=== PATIENT | female | born 1955 | race Caucasian/White ===

== ENCOUNTER 2018-10-23 17:23 | Emergency (ER) | payer OTHER, MEDICAID, SELFPAY ==
[2018-10-23 17:23] VITALS: BP 115/77; PULSE 107; RESP 22; TEMP 35.9; O2SAT 99; BMI 25.8
--- NOTE | 2018-10-23 18:23 | PC.NURSE ---
Pt reports has restless leg syndrome but not currently taking any medication. Reports involuntary movements now even in her shoulders and upper extremities and lasting more than 1hrs which is not usual. Pt reports when pt feels tired, she has the restless leg symptoms and reports alot going on. Denies recent illness, nausea/vomiting/diarrhea, feeling dehydrated or working outdoors.
--- NOTE | 2018-10-23 18:30 | ED.NEUROSD ---
HPI - Neuro Symptoms/Deficit <Harini Pruett PA-C - Last Filed: 10/23/18 22:16> General Chief Complaint: Neuro Symptoms/Deficit Stated Complaint: Restless Leg issues Time Seen by Provider: 10/23/18 18:27 Source: patient Mode of arrival: ambulatory Limitations: no limitations History of Present Illness HPI Narrative: This 63-year-old female comes in today with complaints of worsening restless legs symptoms. She states that she has had intermittent RLS symptoms for perhaps 10 years. She states typically symptoms last up to half an hour and then resolved. She is able to fall asleep. They can occur during the day as well but usually not frequent enough that she would take medication for them. She states that she has been noticing symptoms more frequently recently, and today she was out eating couple of hours ago when she began to have symptoms that have persisted. She states that this is most prominent in her legs but also feels like she needs to move her arms and shoulders. She describes this as a sensation that ?I have to move?. She is not in any pain. She states that she had the flu about a month ago and was hospitalized but has been well since then without any recent illness. No new rash or fevers. She does state that she has not been sleeping as well recently and also has had increased stress with her hospitalized and in a skilled facility, just got discharged. She states the only new medication she is on is lisinopril, changed from losartan 5 or 6 weeks ago, otherwise no recent changes. She states she has been on the same dose of thyroid medication for a long time and numbers were stable at last check, she thinks about 6 months ago. She states that she may have history of mild tremor in the past On Anticoagulants: No Related Data Previous Rx's Medication Instructions Recorded diazepam 2.5 mg PO BID PRN #3 tab 10/23/18 Allergies Allergy/AdvReac Type Severity Reaction Status Date / Time No Known Drug Allergies Allergy Verified 10/23/18 17:25 Review of Systems <Harini Pruett PA-C - Last Filed: 10/23/18 22:16> Review of Systems ROS Unobtainable: All systems reviewed & are unremarkable except as noted in HPI and below PFSH <Harini Pruett PA-C - Last Filed: 10/23/18 22:16> Medical History (Updated 10/23/18 @ 22:13 by Harini Pruett PA-C) Chronic GERD (Chronic) Degenerative disc disease (Chronic) HTN (hypertension) (Chronic) Hypothyroidism (Chronic) Non-insulin dependent type 2 diabetes mellitus (Chronic) Pancytopenia (Chronic) Restless leg syndrome (Chronic) Surgical History (Updated 10/23/18 @ 19:07 by Harini Pruett PA-C) History of lumbosacral spine surgery (Resolved) Social History (Updated 10/23/18 @ 19:08 by Harini Pruett PA-C) Smoking Status: Current some day smoker Social History (Updated 10/23/18 @ 19:08 by Harini Pruett PA-C) Smoking Status: Current some day smoker Comment: Denies ETOH, rare THC, no street drugs Exam <Harini Pruett PA-C - Last Filed: 10/23/18 22:16> Narrative Exam Narrative: GENERAL APPEARANCE: Patient is sleeping comfortably, in no distress. HEENT: PERRL, EOMI, normal oropharynx, no sinus TTP NECK: Supple, no thyromegaly or masses LUNGS: Clear to auscultation bilaterally. HEART: Rate and rhythm regular without murmur, normal S1 and S2, no S3 or S4. ABDOMEN: Soft, NT, ND, + BS x 4 quadrants NEUROLOGIC: Alert and oriented, normal speech, gait and coordination. She appears to have frequent involuntary movement of the feet and lower legs, occasionally the arms. These do not seem to occur with distraction, i.e. when walking or looking in her purse for medication list MUSCULOSKELETAL: Normal sit to stand and gait DERMATOLOGIC: No exanthem Initial Vital Signs Initial Vital Signs: Vital Signs Temperature 96.6 F L 10/23/18 17:23 Pulse Rate 107 H 10/23/18 17:23 Respiratory Rate 22 10/23/18 17:23 Blood Pressure 115/77 10/23/18 17:23 Pulse Oximetry 99 10/23/18 17:23 <Milagro Tain DO - Last Filed: 10/24/18 04:41> Initial Vital Signs Initial Vital Signs: Vital Signs Temperature 96.6 F L 10/23/18 17:23 Pulse Rate 107 H 10/23/18 17:23 Respiratory Rate 22 04/05/19 17:23 Blood Pressure 115/77 04/05/19 17:23 Pulse Oximetry 99 10/23/18 17:23 Course <Harini Pruett PA-C - Last Filed: 10/23/18 22:16> Additional Information: Patient has symptoms that are somewhat atypical, but no acute findings on testing. She states that she remembers being told she has anemia and other low blood cells on previous workup as well as magnesium being slightly low. She thinks that her symptoms may be worse recently due to lack of sleep and stress. She has occasionally taken benzodiazepines for sleep and anxiety without problems. She is going to stay here in [facility] and was given a dose of Valium prior to leaving, can see if her symptoms improve over the next few days if able to get some sleep. I did give her a prescription for a few pills in case needed prior to seeing her PCP next week, discussed that she needs to discuss further workup and maintenance medication if her symptoms are persisting. Orders Ordered: Discontinued Medications Diazepam (Valium) 5 mg PO NOW ONE Stop: 10/23/18 20:36 Last Admin: 10/23/18 20:40 Dose: 5 mg Vital Signs - 8 hr 10/23/18 18:50 10/23/18 20:37 Pulse Rate 107 H 90 Respiratory Rate 18 18 Blood Pressure [Left Arm] 137/95 H 138/77 Pulse Oximetry 98 94 <Milagro Tian DO - Last Filed: 10/24/18 04:41> Orders Ordered: Discontinued Medications Diazepam (Valium) 5 mg PO NOW ONE Stop: 10/23/18 20:36 Last Admin: 10/23/18 20:40 Dose: 5 mg Vital Signs - 8 hr 10/23/18 18:50 10/23/18 20:37 Pulse Rate 107 H 90 Respiratory Rate 18 18 Blood Pressure [Left Arm] 137/95 H 138/77 Pulse Oximetry 98 94 MDM - Neuro Symptoms/Deficit <Harini Pruett PA-C - Last Filed: 10/23/18 22:16> Lab Data Result diagrams: 10/23/18 18:59 10/23/18 18:59 Lab Results 10/23/18 10/23/18 10/23/18 Range/Units 18:59 18:59 18:59 WBC 4.1 L (4.5-11.0) X10^3/uL RBC 3.59 L (4.0-5.2) X10^6/uL Hgb 10.3 L (12.0-16.0) g/dL Hct 31.5 L (36-46) % MCV 87.8 (80-100) fL MCH 28.6 (26-34) PG MCHC 32.6 (30-36) % RDW 15.1 H (11.6-14.8) % Plt Count 104 L (150-400) X10^3/uL Neut % (Auto) 58.1 (50-75) % Lymph % (Auto) 29.8 (25-40) % Candler % (Auto) 8.6 (3-14) % Eos % (Auto) 2.8 (2-4) % Baso % (Auto) 0.7 (0-2) % Neut # (Auto) 2400 (3742-4722) /uL Lymph # (Auto) 1200 (5950-4848) /uL Candler # (Auto) 300 (0-900) /uL Eos # (Auto) 100 (0-450) /uL Baso # (Auto) 0 (0-100) /uL Sodium 140 (137-145) mmol/L Potassium 3.4 (3.4-5.1) mmol/L Chloride 102 (98-107) mmol/L Carbon Dioxide 29 (22-32) mmol/L BUN 11 (7-17) mg/dL Creatinine 0.80 (0.52-1.04) mg/dL Estimated GFR > 60.0 (>60) mL/min BUN/Creatinine Ratio 13.8 (6-22) Glucose 130 H (80-110) mg/dL Calcium 9.7 (8.4-10.2) mg/dL Magnesium 1.5 L (1.6-2.3) mg/dL Iron (37-170) ug/dL TSH 0.72 (0.47-4.68) uIU/mL 10/23/18 Range/Units 18:59 WBC (4.5-11.0) X10^3/uL RBC (4.0-5.2) X10^6/uL Hgb (12.0-16.0) g/dL Hct (36-46) % MCV (80-100) fL MCH (26-34) PG MCHC (30-36) % RDW (11.6-14.8) % Plt Count (150-400) X10^3/uL Neut % (Auto) (50-75) % Lymph % (Auto) (25-40) % Candler % (Auto) (3-14) % Eos % (Auto) (2-4) % Baso % (Auto) (0-2) % Neut # (Auto) (5131-5357) /uL Lymph # (Auto) (0636-5995) /uL Candler # (Auto) (0-900) /uL Eos # (Auto) (0-450) /uL Baso # (Auto) (0-100) /uL Sodium (137-145) mmol/L Potassium (3.4-5.1) mmol/L Chloride (98-107) mmol/L Carbon Dioxide (22-32) mmol/L BUN (7-17) mg/dL Creatinine (0.52-1.04) mg/dL Estimated GFR (>60) mL/min BUN/Creatinine Ratio (6-22) Glucose (80-110) mg/dL Calcium (8.4-10.2) mg/dL Magnesium (1.6-2.3) mg/dL Iron 46 (37-170) ug/dL TSH (0.47-4.68) uIU/mL <Milagro Tian, DO - Last Filed: 10/24/18 04:41> Lab Data Lab Results 10/23/18 10/23/18 10/23/18 Range/Units 18:59 18:59 18:59 WBC 4.1 L (4.5-11.0) X10^3/uL RBC 3.59 L (4.0-5.2) X10^6/uL Hgb 10.3 L (12.0-16.0) g/dL Hct 31.5 L (36-46) % MCV 87.8 (80-100) fL MCH 28.6 (26-34) PG MCHC 32.6 (30-36) % RDW 15.1 H (11.6-14.8) % Plt Count 104 L (150-400) X10^3/uL Neut % (Auto) 58.1 (50-75) % Lymph % (Auto) 29.8 (25-40) % Candler % (Auto) 8.6 (3-14) % Eos % (Auto) 2.8 (2-4) % Baso % (Auto) 0.7 (0-2) % Neut # (Auto) 2400 (4256-3390) /uL Lymph # (Auto) 1200 (0498-2688) /uL Candler # (Auto) 300 (0-900) /uL Eos # (Auto) 100 (0-450) /uL Baso # (Auto) 0 (0-100) /uL Sodium 140 (137-145) mmol/L Potassium 3.4 (3.4-5.1) mmol/L Chloride 102 (98-107) mmol/L Carbon Dioxide 29 (22-32) mmol/L BUN 11 (7-17) mg/dL Creatinine 0.80 (0.52-1.04) mg/dL Estimated GFR > 60.0 (>60) mL/min BUN/Creatinine Ratio 13.8 (6-22) Glucose 130 H (80-110) mg/dL Calcium 9.7 (8.4-10.2) mg/dL Magnesium 1.5 L (1.6-2.3) mg/dL Iron (37-170) ug/dL TSH 0.72 (0.47-4.68) uIU/mL 10/23/18 Range/Units 18:59 WBC (4.5-11.0) X10^3/uL RBC (4.0-5.2) X10^6/uL Hgb (12.0-16.0) g/dL Hct (36-46) % MCV (80-100) fL MCH (26-34) PG MCHC (30-36) % RDW (11.6-14.8) % Plt Count (150-400) X10^3/uL Neut % (Auto) (50-75) % Lymph % (Auto) (25-40) % Candler % (Auto) (3-14) % Eos % (Auto) (2-4) % Baso % (Auto) (0-2) % Neut # (Auto) (8854-9255) /uL Lymph # (Auto) (7925-8887) /uL Candler # (Auto) (0-900) /uL Eos # (Auto) (0-450) /uL Baso # (Auto) (0-100) /uL Sodium (137-145) mmol/L Potassium (3.4-5.1) mmol/L Chloride (98-107) mmol/L Carbon Dioxide (22-32) mmol/L BUN (7-17) mg/dL Creatinine (0.52-1.04) mg/dL Estimated GFR (>60) mL/min BUN/Creatinine Ratio (6-22) Glucose (80-110) mg/dL Calcium (8.4-10.2) mg/dL Magnesium (1.6-2.3) mg/dL Iron 46 (37-170) ug/dL TSH (0.47-4.68) uIU/mL Discharge Plan Departure Patient Disposition: Home Clinical Impression: Restless leg syndrome Discharge Date/Time: 10/23/18 20:59 Interventions: ED Discharge Assessment Last Done: 10/23/18 20:59 Instructions: DI for Restless Legs Syndrome Activity Restrictions/Additional Instructions: There is not any clear lab finding today to explain your worsening restless leg syndrome. You may be correct that this is exact due to your recent stress and lack of sleep. Since you have taken medicines like Valium before, we can try this tonight to see if it helps with your muscles and sleep. I have printed a prescription for a few more of these in case you need to take it again prior to seeing your PCP next week. If you are continuing to have more persistent symptoms after getting some rest, then you should talk with your PCP next week about a trial of a different medication that you can take daily. Please be sure not to drive while taking the Valium since as you know it can make you sleepy Prescriptions: New diazepam 5 mg tablet 2.5 mg PO BID PRN (Reason: sleep/restless legs) Qty: 3 RF: 0 Referrals: Alyssia Bustos ARNP [Non-Staff] - <Milagro Tian DO - Last Filed: 10/24/18 04:41> Cosign ED Attending Edgardature Attestation: I was immediately available in the department for consultation. Documentation has been reviewed. I agree with assessment and plan.
[2018-10-23 18:50] VITALS: BP 137/95; PULSE 107; RESP 18; O2SAT 98
--- NOTE | 2018-10-23 19:04 | ED_ITS ---
HPI - Neuro Symptoms/Deficit <Harini Pruett PA-C - Last Filed: 10/23/18 22:16> General Chief Complaint: Neuro Symptoms/Deficit Stated Complaint: Restless Leg issues Time Seen by Provider: 10/23/18 18:27 Source: patient Mode of arrival: ambulatory Limitations: no limitations History of Present Illness HPI Narrative: This 63-year-old female comes in today with complaints of worsening restless legs symptoms. She states that she has had intermittent RLS symptoms for perhaps 10 years. She states typically symptoms last up to half an hour and then resolved. She is able to fall asleep. They can occur during the day as well but usually not frequent enough that she would take medication for them. She states that she has been noticing symptoms more frequently recently, and today she was out eating couple of hours ago when she began to have symptoms that have persisted. She states that this is most prominent in her legs but also feels like she needs to move her arms and shoulders. She describes this as a sensation that ?I have to move?. She is not in any pain. She states that she had the flu about a month ago and was hospitalized but has been well since then without any recent illness. No new rash or fevers. She does state that she has not been sleeping as well recently and also has had increased stress with her hospitalized and in a skilled facility, just got discharged. She states the only new medication she is on is lisinopril, changed from losartan 5 or 6 weeks ago, otherwise no recent changes. She states she has been on the same dose of thyroid medication for a long time and numbers were stable at last check, she thinks about 6 months ago. She states that she may have history of mild tremor in the past On Anticoagulants: No Related Data Previous Rx's Medication Instructions Recorded diazepam 2.5 mg PO BID PRN #3 tab 10/23/18 Allergies Allergy/AdvReac Type Severity Reaction Status Date / Time No Known Drug Allergies Allergy Verified 10/23/18 17:25 Review of Systems <Harini Pruett PA-C - Last Filed: 10/23/18 22:16> Review of Systems ROS Unobtainable: All systems reviewed & are unremarkable except as noted in HPI and below PFSH <Harini Pruett PA-C - Last Filed: 10/23/18 22:16> Medical History (Updated 10/23/18 @ 22:13 by Harini Pruett PA-C) Chronic GERD (Chronic) Degenerative disc disease (Chronic) HTN (hypertension) (Chronic) Hypothyroidism (Chronic) Non-insulin dependent type 2 diabetes mellitus (Chronic) Pancytopenia (Chronic) Restless leg syndrome (Chronic) Surgical History (Updated 10/23/18 @ 19:07 by Harini Pruett PA-C) History of lumbosacral spine surgery (Resolved) Social History (Updated 10/23/18 @ 19:08 by Harini Pruett PA-C) Smoking Status: Current some day smoker Social History (Updated 10/23/18 @ 19:08 by Harini Pruett PA-C) Smoking Status: Current some day smoker Comment: Denies ETOH, rare THC, no street drugs Exam <Harini Pruett PA-C - Last Filed: 10/23/18 22:16> Narrative Exam Narrative: GENERAL APPEARANCE: Patient is sleeping comfortably, in no distress. HEENT: PERRL, EOMI, normal oropharynx, no sinus TTP NECK: Supple, no thyromegaly or masses LUNGS: Clear to auscultation bilaterally. HEART: Rate and rhythm regular without murmur, normal S1 and S2, no S3 or S4. ABDOMEN: Soft, NT, ND, + BS x 4 quadrants NEUROLOGIC: Alert and oriented, normal speech, gait and coordination. She appears to have frequent involuntary movement of the feet and lower legs, occasionally the arms. These do not seem to occur with distraction, i.e. when walking or looking in her purse for medication list MUSCULOSKELETAL: Normal sit to stand and gait DERMATOLOGIC: No exanthem Initial Vital Signs Initial Vital Signs: Vital Signs Temperature 96.6 F L 10/23/18 17:23 Pulse Rate 107 H 10/23/18 17:23 Respiratory Rate 22 10/23/18 17:23 Blood Pressure 115/77 10/23/18 17:23 Pulse Oximetry 99 10/23/18 17:23 <Milagro Tian DO - Last Filed: 10/24/18 04:41> Initial Vital Signs Initial Vital Signs: Vital Signs Temperature 96.6 F L 10/23/18 17:23 Pulse Rate 107 H 10/23/18 17:23 Respiratory Rate 22 04/05/19 17:23 Blood Pressure 115/77 04/05/19 17:23 Pulse Oximetry 99 10/23/18 17:23 Course <Harini Pruett PA-C - Last Filed: 10/23/18 22:16> Additional Information: Patient has symptoms that are somewhat atypical, but no acute findings on testing. She states that she remembers being told she has anemia and other low blood cells on previous workup as well as magnesium being slightly low. She thinks that her symptoms may be worse recently due to lack of sleep and stress. She has occasionally taken benzodiazepines for sleep and anxiety without problems. She is going to stay here in [facility] and was given a dose of Valium prior to leaving, can see if her symptoms improve over the next few days if able to get some sleep. I did give her a prescription for a few pills in case needed prior to seeing her PCP next week, discussed that she needs to discuss further workup and maintenance medication if her symptoms are persisting. Orders Ordered: Discontinued Medications Diazepam (Valium) 5 mg PO NOW ONE Stop: 10/23/18 20:36 Last Admin: 10/23/18 20:40 Dose: 5 mg Vital Signs - 8 hr 10/23/18 18:50 10/23/18 20:37 Pulse Rate 107 H 90 Respiratory Rate 18 18 Blood Pressure [Left Arm] 137/95 H 138/77 Pulse Oximetry 98 94 <Milagro Tian DO - Last Filed: 10/24/18 04:41> Orders Ordered: Discontinued Medications Diazepam (Valium) 5 mg PO NOW ONE Stop: 10/23/18 20:36 Last Admin: 10/23/18 20:40 Dose: 5 mg Vital Signs - 8 hr 10/23/18 18:50 10/23/18 20:37 Pulse Rate 107 H 90 Respiratory Rate 18 18 Blood Pressure [Left Arm] 137/95 H 138/77 Pulse Oximetry 98 94 MDM - Neuro Symptoms/Deficit <Harini Pruett PA-C - Last Filed: 10/23/18 22:16> Lab Data Result diagrams: 10/23/18 18:59 10/23/18 18:59 Lab Results 10/23/18 10/23/18 10/23/18 Range/Units 18:59 18:59 18:59 WBC 4.1 L (4.5-11.0) X10^3/uL RBC 3.59 L (4.0-5.2) X10^6/uL Hgb 10.3 L (12.0-16.0) g/dL Hct 31.5 L (36-46) % MCV 87.8 (80-100) fL MCH 28.6 (26-34) PG MCHC 32.6 (30-36) % RDW 15.1 H (11.6-14.8) % Plt Count 104 L (150-400) X10^3/uL Neut % (Auto) 58.1 (50-75) % Lymph % (Auto) 29.8 (25-40) % Parke % (Auto) 8.6 (3-14) % Eos % (Auto) 2.8 (2-4) % Baso % (Auto) 0.7 (0-2) % Neut # (Auto) 2400 (6330-8523) /uL Lymph # (Auto) 1200 (7562-3914) /uL Parke # (Auto) 300 (0-900) /uL Eos # (Auto) 100 (0-450) /uL Baso # (Auto) 0 (0-100) /uL Sodium 140 (137-145) mmol/L Potassium 3.4 (3.4-5.1) mmol/L Chloride 102 (98-107) mmol/L Carbon Dioxide 29 (22-32) mmol/L BUN 11 (7-17) mg/dL Creatinine 0.80 (0.52-1.04) mg/dL Estimated GFR > 60.0 (>60) mL/min BUN/Creatinine Ratio 13.8 (6-22) Glucose 130 H (80-110) mg/dL Calcium 9.7 (8.4-10.2) mg/dL Magnesium 1.5 L (1.6-2.3) mg/dL Iron (37-170) ug/dL TSH 0.72 (0.47-4.68) uIU/mL 10/23/18 Range/Units 18:59 WBC (4.5-11.0) X10^3/uL RBC (4.0-5.2) X10^6/uL Hgb (12.0-16.0) g/dL Hct (36-46) % MCV (80-100) fL MCH (26-34) PG MCHC (30-36) % RDW (11.6-14.8) % Plt Count (150-400) X10^3/uL Neut % (Auto) (50-75) % Lymph % (Auto) (25-40) % Parke % (Auto) (3-14) % Eos % (Auto) (2-4) % Baso % (Auto) (0-2) % Neut # (Auto) (7042-4230) /uL Lymph # (Auto) (6673-2899) /uL Parke # (Auto) (0-900) /uL Eos # (Auto) (0-450) /uL Baso # (Auto) (0-100) /uL Sodium (137-145) mmol/L Potassium (3.4-5.1) mmol/L Chloride (98-107) mmol/L Carbon Dioxide (22-32) mmol/L BUN (7-17) mg/dL Creatinine (0.52-1.04) mg/dL Estimated GFR (>60) mL/min BUN/Creatinine Ratio (6-22) Glucose (80-110) mg/dL Calcium (8.4-10.2) mg/dL Magnesium (1.6-2.3) mg/dL Iron 46 (37-170) ug/dL TSH (0.47-4.68) uIU/mL <Milagro Tian, DO - Last Filed: 10/24/18 04:41> Lab Data Lab Results 10/23/18 10/23/18 10/23/18 Range/Units 18:59 18:59 18:59 WBC 4.1 L (4.5-11.0) X10^3/uL RBC 3.59 L (4.0-5.2) X10^6/uL Hgb 10.3 L (12.0-16.0) g/dL Hct 31.5 L (36-46) % MCV 87.8 (80-100) fL MCH 28.6 (26-34) PG MCHC 32.6 (30-36) % RDW 15.1 H (11.6-14.8) % Plt Count 104 L (150-400) X10^3/uL Neut % (Auto) 58.1 (50-75) % Lymph % (Auto) 29.8 (25-40) % Parke % (Auto) 8.6 (3-14) % Eos % (Auto) 2.8 (2-4) % Baso % (Auto) 0.7 (0-2) % Neut # (Auto) 2400 (7976-4229) /uL Lymph # (Auto) 1200 (2586-3745) /uL Parke # (Auto) 300 (0-900) /uL Eos # (Auto) 100 (0-450) /uL Baso # (Auto) 0 (0-100) /uL Sodium 140 (137-145) mmol/L Potassium 3.4 (3.4-5.1) mmol/L Chloride 102 (98-107) mmol/L Carbon Dioxide 29 (22-32) mmol/L BUN 11 (7-17) mg/dL Creatinine 0.80 (0.52-1.04) mg/dL Estimated GFR > 60.0 (>60) mL/min BUN/Creatinine Ratio 13.8 (6-22) Glucose 130 H (80-110) mg/dL Calcium 9.7 (8.4-10.2) mg/dL Magnesium 1.5 L (1.6-2.3) mg/dL Iron (37-170) ug/dL TSH 0.72 (0.47-4.68) uIU/mL 10/23/18 Range/Units 18:59 WBC (4.5-11.0) X10^3/uL RBC (4.0-5.2) X10^6/uL Hgb (12.0-16.0) g/dL Hct (36-46) % MCV (80-100) fL MCH (26-34) PG MCHC (30-36) % RDW (11.6-14.8) % Plt Count (150-400) X10^3/uL Neut % (Auto) (50-75) % Lymph % (Auto) (25-40) % Parke % (Auto) (3-14) % Eos % (Auto) (2-4) % Baso % (Auto) (0-2) % Neut # (Auto) (2970-6758) /uL Lymph # (Auto) (8937-7522) /uL Parke # (Auto) (0-900) /uL Eos # (Auto) (0-450) /uL Baso # (Auto) (0-100) /uL Sodium (137-145) mmol/L Potassium (3.4-5.1) mmol/L Chloride (98-107) mmol/L Carbon Dioxide (22-32) mmol/L BUN (7-17) mg/dL Creatinine (0.52-1.04) mg/dL Estimated GFR (>60) mL/min BUN/Creatinine Ratio (6-22) Glucose (80-110) mg/dL Calcium (8.4-10.2) mg/dL Magnesium (1.6-2.3) mg/dL Iron 46 (37-170) ug/dL TSH (0.47-4.68) uIU/mL Discharge Plan Departure Patient Disposition: Home Clinical Impression: Restless leg syndrome Discharge Date/Time: 10/23/18 20:59 Interventions: ED Discharge Assessment Last Done: 10/23/18 20:59 Instructions: DI for Restless Legs Syndrome Activity Restrictions/Additional Instructions: There is not any clear lab finding today to explain your worsening restless leg syndrome. You may be correct that this is exact due to your recent stress and lack of sleep. Since you have taken medicines like Valium before, we can try this tonight to see if it helps with your muscles and sleep. I have printed a prescription for a few more of these in case you need to take it again prior to seeing your PCP next week. If you are continuing to have more persistent symptoms after getting some rest, then you should talk with your PCP next week about a trial of a different medication that you can take daily. Please be sure not to drive while taking the Valium since as you know it can make you sleepy Prescriptions: New diazepam 5 mg tablet 2.5 mg PO BID PRN (Reason: sleep/restless legs) Qty: 3 RF: 0 Referrals: Alyssia Bustos ARNP [Non-Staff] - <Milagro Tian DO - Last Filed: 10/24/18 04:41> Cosign ED Attending Edgardature Attestation: I was immediately available in the department for consultation. Documentation has been reviewed. I agree with assessment and plan.
[2018-10-23 19:12] LABS: Add Manual Diff / Slide Review NO; Basophils Absolute Auto 0 /uL (0-100); Basophils Percent Auto 0.7 % (0-2); Eosinophils Absolute Auto 100 /uL (0-450); Eosinophils Percent Auto 2.8 % (2-4); Hematocrit 31.5 % (36-46); Hemoglobin 10.3 g/dL (12.0-16.0); Lymphocytes Absolute Auto 1200 /uL (1100-4500); Lymphocytes Percent Auto 29.8 % (25-40); Mean Corpuscular HGB Conc 32.6 % (30-36); Mean Corpuscular Hemoglobin 28.6 PG (26-34); Mean Corpuscular Volume 87.8 fL (80-100); Monocytes Absolute Auto 300 /uL (0-900); Monocytes Percent Auto 8.6 % (3-14); Neutrophils Absolute Auto 2400 /uL (1500-7000); Neutrophils Percent Auto 58.1 % (50-75); Platelet Count 104 X10^3/uL (150-400); Red Blood Cell Count 3.59 X10^6/uL (4.0-5.2); Red Cell Distribution Width 15.1 % (11.6-14.8); White Blood Cell Count 4.1 X10^3/uL (4.5-11.0)
[2018-10-23 19:21] LABS: BUN Creatinine Ratio 13.8 (6-22); Blood Urea Nitrogen 11 mg/dL (7-17); Calcium 9.7 mg/dL (8.4-10.2); Carbon Dioxide 29 mmol/L (22-32); Chloride 102 mmol/L (98-107); Estimated Glomerular Filt Rate > 60.0 mL/min (>60); Glucose 130 mg/dL (80-110); HEMOLYSIS < 15 (0-50); Magnesium 1.5 mg/dL (1.6-2.3); Potassium 3.4 mmol/L (3.4-5.1); Sodium 140 mmol/L (137-145)
[2018-10-23 19:45] LABS: Iron 46 ug/dL (37-170)
[2018-10-23 20:17] LABS: Thyroid Stimulating Hormone 0.72 uIU/mL (0.47-4.68)
[2018-10-23 20:37] VITALS: BP 138/77; PULSE 90; RESP 18; O2SAT 94
[2018-10-23] MEDS: diazePAM 5 MG TABLET PO (20:40)
== END 2018-10-23 20:59 | disposition home or self-care (01) ==
PROVIDERS: Emergency Provider Internal Medicine
DX: G25.81 Restless legs syndrome (principal)
CPT/HCPCS: 80048; 83540; 83735; 84443; 85025; 99283; 99291

== ENCOUNTER 2018-12-16 18:22 | Emergency (ER) | payer OTHER, MEDICAID, SELFPAY ==
[2018-12-16 18:30] VITALS: BP 135/85; PULSE 80; RESP 16; TEMP 37.3; O2SAT 100
--- NOTE | 2018-12-16 18:37 | DI.RAD.S_ITS ---
PROCEDURE: XR HUMERUS RT 2V INDICATIONS: glf, rt upper arm pain TECHNIQUE: 2 views of the humerus were acquired. COMPARISON: None. FINDINGS: Bones: No convincing acute fracture or dislocation of the right humerus. Mild degenerative changes of the right acromioclavicular joint. Soft tissues: Mild soft tissue calcification along the lateral aspect of the right humeral head, which may represent early calcific tendinitis. IMPRESSION: No convincing acute fracture or dislocation of the right humerus. Consider followup radiographs in 7-10 days if there is continued clinical concern. Dictated by: Jake Cohn M.D. on 12/16/2018 at 19:17 Approved by: Jake Cohn M.D. on 12/16/2018 at 19:20
--- NOTE | 2018-12-16 20:35 | ED_ITS ---
HPI - Extremity Injury (Upper) <GERARDO Blum - Last Filed: 12/16/18 23:33> General Chief Complaint: Extremity Injury, Upper Stated Complaint: right arm pain/limited movement x1 day Time Seen by Provider: 12/16/18 20:23 Source: patient Mode of arrival: ambulatory Limitations: no limitations History of Present Illness HPI narrative: The patient is a 63-year-old female current smoker with history of hip fracture who presents with a chief complaint of right upper arm and shoulder pain. She tripped and had a ground level fall last night and subsequently complains of decreased range of motion in severe pain. She took ibuprofen this morning. She is not applied ice or heat. She has not taken anything else for the pain. She denies any numbness or tingling. She states her pain starts in her right shoulder, behind her shoulder blade and then rotates down her arm. She also complains of right-sided rib pain Related Data Previous Rx's Medication Instructions Recorded diazepam 2.5 mg PO BID PRN #3 tab 10/23/18 oxycodone-acetaminophen 1 tab PO Q4-6H PRN #14 tab 12/16/18 Allergies Allergy/AdvReac Type Severity Reaction Status Date / Time No Known Drug Allergies Allergy Verified 10/23/18 17:25 Review of Systems <GERARDO Blum - Last Filed: 12/16/18 23:33> Review of Systems GENERAL: Denies chills, fatigue, malaise, fever, sweats. HEENT: Denies sinus pain, ear pain, sore throat, difficulty swallowing, dizziness. RESPIRATORY: Denies dyspnea, cough, wheezing, hemoptysis, sputum. CARDIOVASCULAR: Denies chest pain, palpitations, orthopnea, edema, GASTROINTESTINAL: Denies nausea, vomiting, abdominal pain, diarrhea, constipation, melena. : Denies dysuria, frequency, incontinence, hematuria, urinary retention. MUSCULOSKELETAL: See HPI SKIN: Denies rash, skin lesions, or other NEUROLOGIC: Denies weakness, headache, numbness, change in speech, confusion, seizures, incoordination. PSYCHIATRIC: No concerning psychosocial issues. 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 Normocephalic. No temporal or scalp tenderness. EYES: Pupils equal round and reactive. Extraocular motions intact. No scleral icterus. No injection or drainage. ENT: Nose without bleeding, purulent drainage or septal hematoma. Throat without erythema, tonsillar hypertrophy or exudate. Uvula midline. Airway patent. NECK: Trachea midline. No JVD or lymphadenopathy. Supple, nontender, no meningeal signs. CARDIOVASCULAR: Regular rate and rhythm without murmurs, gallops, or rubs. RESPIRATORY: Clear to auscultation. Breath sounds equal bilaterally. No wheezes, rales, or rhonchi. No cough. No increased respiratory effort. No accessory muscle use. Pain on lateral chest wall compression. GASTROINTESTINAL: Abdomen soft, non-tender, nondistended. No hepato- splenomegaly, or palpable masses. No guarding. EXTREMITIES: Pain to palpation right shoulder. Decreased extension right shoulder. Positive radial pulse right shoulder. BACK: Nontender without deformity or crepitance. No flank tenderness. No pain to C-spine or spinal palpation. NEURO: AOx3. SKIN: No rash erythema ecchymosis abrasion or laceration noted right shoulder upper arm or chest Initial Vital Signs Initial Vital Signs: Vital Signs Temperature 99.2 F 12/16/18 18:30 Pulse Rate 80 12/16/18 18:30 Respiratory Rate 16 12/16/18 18:30 Blood Pressure 135/85 12/16/18 18:30 Pulse Oximetry 100 12/16/18 18:30 <Dwight Lebron DO - Last Filed: 12/16/18 23:45> Initial Vital Signs Initial Vital Signs: Vital Signs Temperature 99.2 F 12/16/18 18:30 Pulse Rate 80 12/16/18 18:30 Respiratory Rate 16 12/16/18 18:30 Blood Pressure 135/85 12/16/18 18:30 Pulse Oximetry 100 12/16/18 18:30 Course <DONNA Blum-BC - Last Filed: 12/16/18 23:33> Orders Ordered: ED Orders 12/16/18 18:37 XR humerus RT 2V Stat 12/16/18 20:33 XR shoulder RT min 2V Stat 12/16/18 20:43 XR ribs RT min 3V w CXR1V Stat Discontinued Medications Hydrocodone Bitart/Acetaminophen (K[place]land 10/325) 1 tab PO NOW ONE Stop: 12/16/18 23:03 Last Admin: 12/16/18 23:05 Dose: Not Given Hydrocodone Bitart/Acetaminophen ([place]land 5/325) 1 tab PO NOW ONE Stop: 12/16/18 23:04 Last Admin: 12/16/18 23:05 Dose: 1 tab Hydrocodone Bitart/Acetaminophen (Vicodin Prepack) 1 bottle MISC SEEINSTR ONE Stop: 12/16/18 23:22 Last Admin: 12/16/18 23:42 Dose: 1 bottle Ketorolac Tromethamine (Toradol) 60 mg IM NOW ONE Stop: 12/16/18 20:35 Last Admin: 12/16/18 21:01 Dose: 60 mg Vital Signs - 8 hr 12/16/18 18:30 12/16/18 21:09 Temperature 99.2 F Pulse Rate 80 Pulse Rate [Right Radial] 70 Respiratory Rate 16 Blood Pressure 135/85 Pulse Oximetry 100 <Dwight Lebron DO - Last Filed: 12/16/18 23:45> Orders Ordered: ED Orders 12/16/18 18:37 XR humerus RT 2V Stat 12/16/18 20:33 XR shoulder RT min 2V Stat 12/16/18 20:43 XR ribs RT min 3V w CXR1V Stat Discontinued Medications Hydrocodone Bitart/Acetaminophen ([place] 10/325) 1 tab PO NOW ONE Stop: 12/16/18 23:03 Last Admin: 12/16/18 23:05 Dose: Not Given Hydrocodone Bitart/Acetaminophen ([place] 5/325) 1 tab PO NOW ONE Stop: 12/16/18 23:04 Last Admin: 12/16/18 23:05 Dose: 1 tab Hydrocodone Bitart/Acetaminophen (Vicodin Prepack) 1 bottle MISC SEEINSTR ONE Stop: 12/16/18 23:22 Last Admin: 12/16/18 23:42 Dose: 1 bottle Ketorolac Tromethamine (Toradol) 60 mg IM NOW ONE Stop: 12/16/18 20:35 Last Admin: 12/16/18 21:01 Dose: 60 mg Vital Signs - 8 hr 12/16/18 18:30 12/16/18 21:09 Temperature 99.2 F Pulse Rate 80 Pulse Rate [Right Radial] 70 Respiratory Rate 16 Blood Pressure 135/85 Pulse Oximetry 100 MDM - Extremity Injury (Upper) <GERARDO Blum - Last Filed: 12/16/18 23:33> Imaging Data Rib x-ray: Radiologist's impression: Ankita Kinney Quintin 63 F [address] [address] XRay Report Signed Patient: Ankita Kinney GMR#: [id number] : 1955cct:[id number] Age/Sex: 63 / FDate of Service: 12/16/18 Loc: ED Accession Number: [id number] Procedure: XR ribs RT min 3V w CXR1V Ordering Provider: Delaney Sapp PROCEDURE: XR RIBS RT MIN 3V W CXR 1V INDICATIONS: pain sp glf TECHNIQUE: 2 views of the right ribs were acquired, along with a single view chest. COMPARISON: [facility], CR, XR SHOULDER RT MIN 2V, 12/16/2018, 20:40. [facility], CR, XR HUMERUS RT 2V, 12/16/2018, 18:39. [facility], CR, XR CHEST 1 VIEW, 06/18/2018, 16:05. FINDINGS: Surgical changes and devices: There is internal fixation hardware along the proximal left humerus, with persistent fracture deformity noted. Bones and chest wall: No suspicious bony lesions. There is cortical contour irregularity of the lateral aspect of the right seventh rib. There are prominent skin folds projecting over the lateral chest fink bilaterally, with lung markings traced past the skin folds. Lungs and pleura: No pleural effusions or pneumothorax. Lungs appear clear. Mediastinum: Mediastinal contours appear normal. Heart size is normal. IMPRESSION: Cortical irregularity of the lateral aspect of the right seventh rib, which may represent a nondisplaced fracture in the appropriate clinical setting. Correlation with point tenderness suggested. Dictated by: Jake Cohn M.D. on 12/16/2018 at 22:59 Approved by: Jake Cohn M.D. on 12/16/2018 at 23:03 shoulder x-ray: Radiologist's impression: KinneyAnkita G 63 F [address] [address] XRay Report Signed Patient: KinneyAnkita sanchez R#: [id number] : [id number]:[id number] Age/Sex: 63 / FDate of Service: 12/16/18 Loc: ED Accession Number: [id number] Procedure: XR shoulder RT min 2V Ordering Provider: Delaney Sapp- PROCEDURE: XR SHOULDER RT MIN 2V INDICATIONS: right shoulder pain sp fall TECHNIQUE: 3 views of the shoulder were acquired. COMPARISON: None. FINDINGS: Bones: No fractures or dislocations. No suspicious bony lesions. Visualized ribs appear intact. Soft tissues: No suspicious soft tissue calcifications. IMPRESSION: No acute fracture or dislocation of the right shoulder. Consider followup radiographs in 7-10 days if there is continued clinical concern. Dictated by: Jake Cohn M.D. on 12/16/2018 at 22:55 Approved by: Jake Cohn M.D. on 12/16/2018 at 22:59 Humerus x-ray: Radiologist's impression: [address] [address] XRay Report Signed Patient: Ankita Kinney GMR#: [id number] : [id number]:[id number] Age/Sex: 63 / FDate of Service: 12/16/18 Loc: ED Accession Number: [id number] Procedure: XR humerus RT 2V Ordering Provider: Dwight Lebron D.O. PROCEDURE: XR HUMERUS RT 2V INDICATIONS: glf, rt upper arm pain TECHNIQUE: 2 views of the humerus were acquired. COMPARISON: None. FINDINGS: Bones: No convincing acute fracture or dislocation of the right humerus. Mild degenerative changes of the right acromioclavicular joint. Soft tissues: Mild soft tissue calcification along the lateral aspect of the right humeral head, which may represent early calcific tendinitis. IMPRESSION: No convincing acute fracture or dislocation of the right humerus. Consider followup radiographs in 7-10 days if there is continued clinical concern. Dictated by: Jake Cohn M.D. on 12/16/2018 at 19:17 Approved by: Jake Cohn M.D. on 12/16/2018 at 19:20 MDM Narrative Medical decision making narrative: The patient is a 63-year-old female who presents after ground level fall with a chief complaint of shoulder pain. Her shoulder and humerus x-rays came back negative, but she does have a single rib fracture. She received Kirkland in the emergency department for pain as well as Toradol. She received incentive spirometer teaching for prevention of pneumonia. I discussed at length follow up with primary care provider. Discussed coming back to emergency department for any acute concerns such as chest pain shortness of breath etc. Discussed importance of continued deep breathing to help prevent pneumonia. Patient has no questions or concerns upon discharge. I gave her a take home pack of Vicodin as well as a prescription of Percocet. Discharge Plan Departure Patient Disposition: Home Clinical Impression: Acute shoulder pain Qualifiers: Laterality: right Qualified Code(s): M25.511 - Pain in right shoulder Closed rib fracture Qualifiers: Encounter type: initial encounter Rib fracture type: single rib Laterality: right Qualified Code(s): S22.31XA - Fracture of one rib, right side, initial encounter for closed fracture Instructions: How to Use an Incentive Spirometer, DI for Rib Fracture, How To Perform RICE (Rest, Ice, Compress, Elevate), DI for Shoulder Pain Activity Restrictions/Additional Instructions: Your arm and shoulder x-rays showed no acute fracture. However her rib x-rays are concerning for a fracture.. Please use the incentive spirometer as we discussed to help prevent development of pneumonia. I have given you a pain medication. This can be sedating and constipating. Do not take it and drive. Do not combine it with your diazepam. Please follow up with primary care provider. Please come back to emergency department for any acute concerns such as chest pain shortness of breath etc Prescriptions: New oxycodone-acetaminophen 5-325 mg tablet 1 tab PO Q4-6H PRN (Reason: pain) Qty: 14 RF: 0 No Action diazepam 5 mg tablet 2.5 mg PO BID PRN (Reason: sleep/restless legs) Qty: 3 RF: 0 Referrals: Alyssia Bustos ARNP [Primary Care Provider] - <Dwight Lebron DO - Last Filed: 12/16/18 23:45> Cosign ED Attending Sabino Attestation: I was available for consultation during this patient's emergency department encounter
--- NOTE | 2018-12-16 20:43 | DI.RAD.S_ITS ---
PROCEDURE: XR RIBS RT MIN 3V W CXR 1V INDICATIONS: pain sp glf TECHNIQUE: 2 views of the right ribs were acquired, along with a single view chest. COMPARISON: [facility], CR, XR SHOULDER RT MIN 2V, 12/16/2018, 20:40. [facility], CR, XR HUMERUS RT 2V, 12/16/2018, 18:39. [facility], CR, XR CHEST 1 VIEW, 06/18/2018, 16:05. FINDINGS: Surgical changes and devices: There is internal fixation hardware along the proximal left humerus, with persistent fracture deformity noted. Bones and chest wall: No suspicious bony lesions. There is cortical contour irregularity of the lateral aspect of the right seventh rib. There are prominent skin folds projecting over the lateral chest fink bilaterally, with lung markings traced past the skin folds. Lungs and pleura: No pleural effusions or pneumothorax. Lungs appear clear. Mediastinum: Mediastinal contours appear normal. Heart size is normal. IMPRESSION: Cortical irregularity of the lateral aspect of the right seventh rib, which may represent a nondisplaced fracture in the appropriate clinical setting. Correlation with point tenderness suggested. Dictated by: Jake Cohn M.D. on 12/16/2018 at 22:59 Approved by: Jake Cohn M.D. on 12/16/2018 at 23:03
[2018-12-16] MEDS: KETOROLAC 60 MG/2 ML VIAL IM (21:01)
[2018-12-16 21:09] VITALS: PULSE 70
[2018-12-16] MEDS: HYDROCODONE/ACET 5/325 TABLET 1 TAB PO (23:05)
[2018-12-16] MEDS: HYDROCODONE/ACET 5/325 PREPACK 1 BOTTLE MISC (23:42)
[2018-12-16 23:46] VITALS: BP 154/87; PULSE 81; RESP 18; O2SAT 98
== END 2018-12-16 23:46 | disposition home or self-care (01) ==
PROVIDERS: Emergency Provider Nurse Practitioner Family; PCP Nurse Practitioner
DX: S22.31XA Fracture of one rib, right side, initial encounter for closed fracture (principal); M25.511 Pain in right shoulder; W18.30XA Fall on same level, unspecified, initial encounter
CPT/HCPCS: 71101; 73030; 73060; 96372; 99282; 99283; J1885

== ENCOUNTER 2024-03-06 11:20 | Inpatient (IN) | payer MEDICARE, OTHER, SELFPAY ==
[2024-02-23 14:01] VITALS: BMI 25.8
[2024-03-04] VITALS (13 sets, daily range): BP systolic 105–168; BP diastolic 48–88; PULSE 72–92; RESP 12–20; TEMP 35.8–36.9; O2SAT 93–99; BMI 25.8
--- NOTE | 2024-03-04 06:00 | DI.RAD.S_ITS ---
PROCEDURE: XR SHOULDER LT 1V INDICATIONS: TSA TECHNIQUE: 1 views of the shoulder were acquired. COMPARISON: None. FINDINGS: Bones: No fractures or dislocations. No suspicious bony lesions. Visualized ribs appear intact. Left shoulder arthroplasty. Hardware is intact without hardware fracture or periprosthetic lucency to suggest loosening. There is adequate alignment. However, positioning is suboptimal. Soft tissues: No suspicious soft tissue calcifications. IMPRESSION: Left shoulder arthroplasty with likely adequate alignment. However, positioning is suboptimal and hree take is recommended as indicated. Dictated by: Meena Grajeda M.D. on 03/08/2024 at 13:27 Approved by: Meena Grajeda M.D. on 03/08/2024 at 13:28
--- NOTE | 2024-03-04 11:01 | PM.PREOP ---
Pre-operative Note Interval Note History & Physical reviewed/Exam performed by Physician: Yes Changes to H&P: No
[2024-03-04] MEDS: LACTATED RINGERS 1,000 ML 42 ML IV (11:14)
--- NOTE | 2024-03-04 11:49 | SUR.OPER ---
Beach chair on padded OR bed. Head on gel donut secured with tape over gauze. Non-operative arm secured <90 degrees abduction on padded arm board. Pillow under knees. Safety belt at thigh. Cloth tape over blanket over lower legs.
[2024-03-04] MEDS: TRANEXAMIC ACID 1,000 MG VIAL 1000 MG INJ (12:33)
[2024-03-04] MEDS: CEFAZOLIN 2 GM/100 ML PREMIX 100 ML IV (12:33)
--- NOTE | 2024-03-04 14:45 | PM.OP.1 ---
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 Removal of hardware (deep implant) left proximal humerus 2. Reverse total shoulder arthroplasty Same procedure as scheduled: Yes Indications: Indications: This is a 68-year-old female who has left varus malunion of a proximal humerus status post proximal humerus ORIF. Symptoms have been present for years. Patient has failed a reasonable attempt at conservative therapy. After extensive discussion in clinic, they wished to go forward with surgery. Risks and benefits were described including the risk of infection, bleeding, damage to internal structures including nerves. We also discussed the risk of failure of surgery and the need for revision surgery as well as the risk of anesthesia. The patient expressed understanding with these risks and wished to go forward with surgery. 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 The correct left shoulder was identified and marked with my initials. Again we discussed the risks and benefits of surgery and they wished to go forward with surgery. The patient was brought back to the operating room and placed supine on the operating table. Smooth endotracheal intubation was performed by anesthesia. All prominences were padded and they were placed into the beach chair position. Intravenous antibiotics were given. The left shoulder was then prepped with the standard sterile preparation and draping. A time-out was then performed in my initials were again identified on the correct shoulder. 1 g of IV tranexamic acid was given. A standard deltopectoral incision was made. Skin flaps were made. The cephalic vein was identified and retracted laterally. This was protected throughout the remainder of the case. Sharp dissection was made along the deltoid, subacromial and subcoracoid space to release adhesions. The conjoined tendon was identified and the axillary nerve was palpated and continuous using the tug test. It was protected throughout the remainder of the case. A brown retractor was placed underneath the deltoid muscle and a darach retractor underneath the conjoint tendon. Dissection was taken around the proximal humerus locking plate and all of the proximal and distal screws were removed. The plate was then removed and the old screw holes were debrided. The subscapularis muscle was ntoed to be thinned but partially intact. The anterior circumflex artery and associated veins on the lower border of the subscapularis were identified and tied off using 0-Vicryl. The biceps tendon was identified in the bicipital groove. This was released from its sheath, and taken from its origin on the glenoid and tied into the pectoralis tendon for a solid tenodesis. We then began a subscapularis peel. The subscapularis was tagged with an Ethibond suture. A 360 degree circumferential release of the subscapularis was performed with protection of the axillary nerve. The coracohumeral ligament was released at the base of the coracoid. The shoulder was then dislocated. Osteophytes were removed using combination of rongeur and osteotome. The rotator cuff was noted to be insufficient. An intramedullary guide was used set at version of 20?. Using an oscillating saw a conservative humeral head cut was made. Impaction reamers were reamed up to a size 2 stem with a built-in angle 135?. A neck protector was placed. Attention was then turned to the glenoid. After retracting the humeral head posteriorly a circumferential release was performed of the capsule with protection of the axillary nerve. The labrum was then released starting at the biceps anchor and going around the rim a small amount of triceps was released from the inferior glenoid. A center guide pin was then placed using the guide, followed by Reamer. After adequate cartilage was removed the boss was reamed and the centeral hole was drilled and measured. The base plate was then implanted and screwed into place. The peripheral screws were then sequentially drilled, measured, and placed. A 36 standard glenosphere was then selected and screwed into place onto the base plate. Turning back to the humerus, the humeral head was delivered and trialed with a 10 degree constrained. The arm was taken through range of motion and this was felt to be stable. The trial was then removed and a dilute Betadine wash was then performed with 1 L of sterile saline. Before placing the final implant, drill holes were made in the bicipital groove for the subscapularis repair, and sutures were passed through the drill holes. The final stem was then impacted into the humerus. The shoulder was then reduced and again brought through range of motion and was felt to be stable. The subscapularis was then repaired using a modified racking hitch with nice loupes. The deltopectoral interval was then closed with #2 Ethibond. The skin was closed with 2-0 vicryl and 3-0 Monocryl followed by Aquacel dressing. Patient was awoken from anesthesia and brought back to the postoperative recovery unit without issue. They were placed into a sling. Assisting participation: This operation could not have been safely performed (without compromising the technical results or length of the procedure) without the assistance of a skilled surgical scrub tech. The surgical scrub tech was medically necessary for proper positioning, retraction and manipulation of instruments, proper exposure, graft prep, and manipulation of tissue. Post-operative Condition: stable Disposition: PACU Plan for aftercare: Postoperative instructions: Sling to remain on for 6 weeks. No external rotation past neutral for 6 weeks. Okay for the sling to come off for shower. Okay to shower over the Aquacel dressing. If any water gets underneath the dressing, remove the dressing. First postoperative visit in 2 weeks.
[2024-03-04] MEDS: OXYCODONE IR 5 MG TABLET PO (16:00)
[2024-03-04] MEDS: LACTATED RINGERS 1,000 ML 100 ML IV (16:01)
[2024-03-04] MEDS: OXYCODONE IR 10 MG TABLET PO ×2 (20:28→23:56)
[2024-03-04] MEDS: DULOXETINE 30 MG CAPSULE 90 MG PO (22:13)
[2024-03-04] MEDS: DOCUSATE 100 MG CAPSULE PO (22:13)
[2024-03-04] MEDS: TRAZODONE 50 MG TABLET 100 MG PO (22:13)
[2024-03-04] MEDS: METFORMIN HCL 500 MG TABLET PO (22:14)
[2024-03-04] MEDS: ATORVASTATIN 20 MG TABLET PO (22:14)
[2024-03-04] MEDS: methocarbamoL 500 MG TABLET 750 MG PO (22:14)
[2024-03-04] MEDS: ASPIRIN EC 81 MG TABLET PO (22:16)
[2024-03-04] MEDS: IBUPROFEN 600 MG TABLET PO (23:13)
[2024-03-05] VITALS (7 sets, daily range): BP systolic 95–133; BP diastolic 43–68; PULSE 80–88; RESP 17–21; TEMP 35.9–39.2; O2SAT 91–96
[2024-03-05] MEDS: OXYCODONE IR 10 MG TABLET PO ×4 (04:55→21:42)
[2024-03-05] MEDS: LEVOTHYROXINE 25 MCG TABLET PO (05:04)
[2024-03-05] MEDS: PANTOPRAZOLE DR 20 MG TABLET PO (05:04)
[2024-03-05 06:38] LABS: Add Manual Diff / Slide Review NO; Basophils Absolute Auto 0 /uL (0-100); Basophils Percent Auto 0.2 % (0-2); Eosinophils Absolute Auto 200 /uL (0-450); Eosinophils Percent Auto 2.9 % (2-4); Hematocrit 28.6 % (36-46); Hemoglobin 9.2 g/dL (12.0-16.0); Lymphocytes Absolute Auto 1100 /uL (1100-4500); Lymphocytes Percent Auto 16.1 % (25-40); Mean Corpuscular HGB Conc 32.1 % (30-36); Mean Corpuscular Hemoglobin 26.9 PG (26-34); Mean Corpuscular Volume 83.9 fL (80-100); Monocytes Absolute Auto 700 /uL (0-900); Monocytes Percent Auto 9.7 % (3-14); Neutrophils Absolute Auto 4800 /uL (1500-7000); Neutrophils Percent Auto 71.1 % (50-75); Platelet Count 107 X10^3/uL (150-400); Red Blood Cell Count 3.41 X10^6/uL (4.0-5.2); Red Cell Distribution Width 15.1 % (11.6-14.8); White Blood Cell Count 6.7 X10^3/uL (4.5-11.0)
[2024-03-05 06:49] LABS: BUN Creatinine Ratio 15.8 (6-22); Blood Urea Nitrogen 15 mg/dL (7-17); Calcium 8.3 mg/dL (8.4-10.2); Carbon Dioxide 28 mmol/L (22-32); Chloride 102 mmol/L (98-107); Estimated Glomerular Filt Rate > 60 mL/min (>60); Glucose 147 mg/dL (80-110); HEMOLYSIS < 15 (0-50); Sodium 135 mmol/L (137-145)
--- NOTE | 2024-03-05 06:49 | PC.NURSE ---
NOC: Pt states that daughter Dahiana Jaquez can receive info about patient, phone # [phone].
--- NOTE | 2024-03-05 08:28 | PM.DS.1 ---
History of Present Illness History of Present Illness Date Patient Seen: 03/05/24 Time Patient Seen: 08:20 Chief complaint: OPB Narrative: Patient is found lying in her bed. States pain is controlled with oral medications. States she is hesitant to return home she does live by herself but has family members within driving distance. Discharge Providers Provider Discharge Date: 03/05/24 Primary care physician: RHIANNON Donaldson Consults: 03/04/24 06:00 Consult to Anesthesiology Routine Comment: Consulting Provider: Anesthesiologist Reason for consultation: Regional block for post operative pain control Has provider been notified: No 03/04/24 15:22 Consult to Discharge Planning Routine Comment: Consult to Occupational Therapy Evaluate & Treat Comment: Physician Instructions: Evaluate and treat Consult to Physical Therapy Evaluate & Treat Comment: Non-weight bearing to surgical extremity Physician Instructions: Evaluate and Treat 03/05/24 08:23 Consult to Physical Therapy Evaluate & Treat Comment: Physician Instructions: Fit ARC 2.0 Shoulder Immobilizer Discharge provider: Joseph Morrow PA-C Summary Hospital Course Discharge Diagnosis: Left shoulder varus malunion status post proximal humerus fracture ORIF Hospital Course: Procedure: 1. Removal of hardware (deep implant) left proximal humerus 2. Reverse total shoulder arthroplasty Same procedure as scheduled: Yes Indications: Indications: This is a 68-year-old female who has left varus malunion of a proximal humerus status post proximal humerus ORIF. Symptoms have been present for years. Patient has failed a reasonable attempt at conservative therapy. After extensive discussion in clinic, they wished to go forward with surgery. Risks and benefits were described including the risk of infection, bleeding, damage to internal structures including nerves. We also discussed the risk of failure of surgery and the need for revision surgery as well as the risk of anesthesia. The patient expressed understanding with these risks and wished to go forward with surgery. 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, as well as a defient rotator cuff as noted on preoperative imaging and under direct visualization Closure Type: primary Specimen(s): none sent Prosthetic devices, grafts, tissues, transplants, or devices: Tornier implants Base plate: standard 25 mm, +3 mm offset Glenosphere: Standard 36 mm Stem: Perform 2 Poly: 10 degree constrained Estimated Blood Loss (mL): 100 Blood products transfused: none Status at Discharge Cognitive/behavioral status at discharge: oriented Functional status at discharge: independent ambulation Overall status at discharge: patient is back to baseline Time Spent with Patient Time spent: Less than 30 minutes Time spent discussing smoking cessation with patient: 3 to 10 minutes Exam Vital Signs (past 8 hours): Oxygen Delivery Method Room Air Oxygen Flow Rate 0 Narrative Exam Narrative: Patient's shoulder immobilizer is not appropriately fitted. Dressing is clean and intact. Sensation intact to light touch along the left upper extremity. Able to flex and extend all 5 digits. Resp Effort & Inspection: normal respiratory effort and able to speak in complete sentences Objective Labs 03/05/24 05:50 03/05/24 05:50 Labs: Laboratory Results - last 24 hr 03/05/24 05:50 WBC 6.7 RBC 3.41 L Hgb 9.2 L Hct 28.6 L MCV 83.9 MCH 26.9 MCHC 32.1 RDW 15.1 H Plt Count 107 L Neut % (Auto) 71.1 Lymph % (Auto) 16.1 L [place] % (Auto) 9.7 Eos % (Auto) 2.9 Baso % (Auto) 0.2 Neut # (Auto) 4800 Lymph # (Auto) 1100 [place] # (Auto) 700 Eos # (Auto) 200 Baso # (Auto) 0 Sodium 135 L Potassium 4.0 Chloride 102 Carbon Dioxide 28 BUN 15 Creatinine 0.95 Estimated GFR > 60 BUN/Creatinine Ratio 15.8 Glucose 147 H Calcium 8.3 L PFSH Medical History (Updated 02/23/24 @ 14:32 by Sierra Jonas RN) History of COVID-19 (~2020) Depression Recovering alcoholic Breast cancer, right (~2017) Arthritis Diabetes Cirrhosis IBS (irritable bowel syndrome) HLD (hyperlipidemia) Pancytopenia Restless leg syndrome Chronic GERD Hypothyroidism Degenerative disc disease Non-insulin dependent type 2 diabetes mellitus HTN (hypertension) Surgical History (Updated 02/23/24 @ 15:07 by Sierra Jonas RN) History of partial mastectomy of right breast (~2017) Hx of shoulder surgery (08/21/18) History of total right hip replacement History of tonsillectomy History of hysterectomy (1991) Hx of laminectomy (~2007) History of lumbosacral spine surgery (~2008) Social History (Updated 10/23/18 @ 19:08 by Harini Pruett PA-C) household members: none Smoking Status: Current some day smoker alcohol intake: former Discharge Assessment & Plan Assessment and Plan Assessment: Status post left shoulder reverse total arthoplasty Plan of Treatment: Discharge to home. Patient has postoperative medications and instructed in their use. Keep shoulder immobilized for the next 6 weeks. Initiate physical therapy within the next 10 days. Follow-up in clinic in 2 weeks for wound check. Discharge Plan Discharge Plan Patient Disposition: Home Discharge orders & Medications Discharge Orders: Discharge (Order); Ordered 03/05/24 Ordered By: Joseph Morrow Prescriptions: Continued metformin 500 mg Tablet 500 mg PO BID atorvastatin 20 mg Tablet 20 mg PO BEDTIME meloxicam 15 mg Tablet 15 mg PO DAILY naltrexone 50 mg Tablet 50 mg PO DAILY amlodipine 5 mg Tablet 5 mg PO DAILY levothyroxine 25 mcg Tablet 25 mcg PO DAILY methocarbamol 750 mg Tablet 750 mg PO TID trazodone 100 mg Tablet 100 mg PO BEDTIME omeprazole 20 mg Capsule,Delayed Release(Dr/Ec) 20 mg PO DAILY buspirone 15 mg Tablet 15 mg PO TID bupropion HCl 300 mg Tablet Extended Release 24 Hr 300 mg PO QAM duloxetine 30 mg Capsule,Delayed Release(Dr/Ec) 30 mg PO BEDTIME duloxetine 60 mg Capsule,Delayed Release(Dr/Ec) 60 mg PO BEDTIME gabapentin 300 mg Tablet Extended Release 24 Hr 300 mg PO TID Follow up/Referrals: Kell Jeff FNP-C [Primary Care Provider] - Chris Villa MD [Physician] - (Follow up as scheduled in 2 weeks at [facility] Diet/Activity/Treatments Diet: Diet as Tolerated Activity: Remain in sling w/ no external rotation past neutral for 6 weeks. Cold/Heat Therapy: Ice to the shoulder for additional pain control Skin/Wound/Dressing Care Report to your healthcare provider any signs of infection, such as:: chills, fever, night sweats, unusual drainage and unusual redness Dressing: Keep dressing intact, clean and dry until 2 week post-op appointment. No soaking the incision site in pools or tubs. No topical ointments or creams to the incision site. Remain in sling with no external rotation Visit Report/Discharge Packet Instructions: DI for Shoulder Replacement Stand Alone Forms: Patient Portal/API, Surgery Discharge Discharge Data Primary Care Provider: Kell Jeff Attending Provider: Chris Villa VTE Deep Vein Thrombosis/Pulmonary Embolism Present on Admission: No
--- NOTE | 2024-03-05 08:29 | PM.DS.1 ---
History of Present Illness History of Present Illness Date Patient Seen: 03/05/24 Time Patient Seen: 08:20 Chief complaint: OPB Discharge Providers Provider Primary care physician: RHIANNON Donaldson Consults: 03/04/24 06:00 Consult to Anesthesiology Routine Comment: Consulting Provider: Anesthesiologist Reason for consultation: Regional block for post operative pain control Has provider been notified: No 03/04/24 15:22 Consult to Discharge Planning Routine Comment: Consult to Occupational Therapy Evaluate & Treat Comment: Physician Instructions: Evaluate and treat Consult to Physical Therapy Evaluate & Treat Comment: Non-weight bearing to surgical extremity Physician Instructions: Evaluate and Treat 03/05/24 08:23 Consult to Physical Therapy Evaluate & Treat Comment: Physician Instructions: Fit ARC 2.0 Shoulder Immobilizer Discharge provider: Joseph Morrow PA-C Exam Vital Signs (past 8 hours): Oxygen Delivery Method Room Air Oxygen Flow Rate 0 Objective Labs 03/05/24 05:50 03/05/24 05:50 Labs: Laboratory Results - last 24 hr 03/05/24 05:50 WBC 6.7 RBC 3.41 L Hgb 9.2 L Hct 28.6 L MCV 83.9 MCH 26.9 MCHC 32.1 RDW 15.1 H Plt Count 107 L Neut % (Auto) 71.1 Lymph % (Auto) 16.1 L [place] % (Auto) 9.7 Eos % (Auto) 2.9 Baso % (Auto) 0.2 Neut # (Auto) 4800 Lymph # (Auto) 1100 [place] # (Auto) 700 Eos # (Auto) 200 Baso # (Auto) 0 Sodium 135 L Potassium 4.0 Chloride 102 Carbon Dioxide 28 BUN 15 Creatinine 0.95 Estimated GFR > 60 BUN/Creatinine Ratio 15.8 Glucose 147 H Calcium 8.3 L PFSH Medical History (Updated 02/23/24 @ 14:32 by Sierra Jonas RN) History of COVID-19 (~2020) Depression Recovering alcoholic Breast cancer, right (~2018) Arthritis Diabetes Cirrhosis IBS (irritable bowel syndrome) HLD (hyperlipidemia) Pancytopenia Restless leg syndrome Chronic GERD Hypothyroidism Degenerative disc disease Non-insulin dependent type 2 diabetes mellitus HTN (hypertension) Surgical History (Updated 02/23/24 @ 15:07 by Sierra Jonas RN) History of partial mastectomy of right breast (~2018) Hx of shoulder surgery (08/21/18) History of total right hip replacement History of tonsillectomy History of hysterectomy (1991) Hx of laminectomy (~2007) History of lumbosacral spine surgery (~2008) Social History (Updated 10/23/18 @ 19:08 by Harini Pruett PA-C) household members: none Smoking Status: Current some day smoker alcohol intake: former Discharge Plan Discharge Plan Patient Disposition: Home Discharge orders & Medications Prescriptions: No Action metformin 500 mg Tablet 500 mg PO BID atorvastatin 20 mg Tablet 20 mg PO BEDTIME meloxicam 15 mg Tablet 15 mg PO DAILY naltrexone 50 mg Tablet 50 mg PO DAILY amlodipine 5 mg Tablet 5 mg PO DAILY levothyroxine 25 mcg Tablet 25 mcg PO DAILY methocarbamol 750 mg Tablet 750 mg PO TID trazodone 100 mg Tablet 100 mg PO BEDTIME omeprazole 20 mg Capsule,Delayed Release(Dr/Ec) 20 mg PO DAILY buspirone 15 mg Tablet 15 mg PO TID bupropion HCl 300 mg Tablet Extended Release 24 Hr 300 mg PO QAM duloxetine 30 mg Capsule,Delayed Release(Dr/Ec) 30 mg PO BEDTIME duloxetine 60 mg Capsule,Delayed Release(Dr/Ec) 60 mg PO BEDTIME gabapentin 300 mg Tablet Extended Release 24 Hr 300 mg PO TID Follow up/Referrals: Kell Jeff FNP-C [Primary Care Provider] - Chris Villa MD [Physician] - (Follow up as scheduled in 2 weeks at [facility].) Diet/Activity/Treatments Diet: Diet as Tolerated Activity: Remain in sling w/ no external rotation past neutral for 6 weeks. Cold/Heat Therapy: Ice to the shoulder for additional pain control Skin/Wound/Dressing Care Report to your healthcare provider any signs of infection, such as:: chills, fever, night sweats, unusual drainage and unusual redness Dressing: Keep dressing intact, clean and dry until 2 week post-op appointment. No soaking the incision site in pools or tubs. No topical ointments or creams to the incision site. Remain in sling with no external rotation Visit Report/Discharge Packet Instructions: DI for Shoulder Replacement Stand Alone Forms: Patient Portal/API, Surgery Discharge Discharge Data Primary Care Provider: Kell Jeff Attending Provider: Chris Villa Quality VTE Deep Vein Thrombosis/Pulmonary Embolism Present on Admission: No
[2024-03-05] MEDS: DOCUSATE 100 MG CAPSULE PO ×2 (08:59→21:41)
[2024-03-05] MEDS: AMLODIPINE 5 MG TABLET PO (09:00)
[2024-03-05] MEDS: BUSPIRONE 5 MG TABLET 15 MG PO ×3 (09:00→21:42)
[2024-03-05] MEDS: IBUPROFEN 600 MG TABLET PO ×2 (09:00→18:31)
[2024-03-05] MEDS: METFORMIN HCL 500 MG TABLET PO ×2 (09:00→21:41)
[2024-03-05] MEDS: ASPIRIN EC 81 MG TABLET PO ×2 (09:03→21:41)
[2024-03-05] MEDS: methocarbamoL 500 MG TABLET 750 MG PO ×3 (09:03→21:40)
[2024-03-05] MEDS: MELOXICAM 7.5 MG TABLET 15 MG PO (09:04)
[2024-03-05] MEDS: polyethylene glycoL 3350 17 GM POWD.PACK PO (09:06)
--- NOTE | 2024-03-05 09:38 | CM.DANOTE ---
Initial DCP Assessment Note Pt is a 68 yo female, resident of [place], now POD#[address] surgery with Dr Villa PCP: Kell Jeff Payer: JENNIFER/rajani Health Care Proxy/Next of Kin Dahiana (daughter) Health Care Proxy Phone Number Dahiana: [phone] Emergency Contact Name [place] (sister) Burke (brother) Emergency Contact Phone Number [place]: [phone] Burke: Reviewed chart, met w/patient to introduce self and role. Patient a little lethargic this morning. Patient reports she lives alone, independently, her daughter works two jobs and sister/BRIAN have issues of their own. Explained to patient that insurance and admitting status will limit her coverage for facility stay and will need to pay privately for facility care at this time. Patient states understanding. Discussed HH services and patient agreeable. No agency preference. Strongly encouraged patient to ask her family to help with higher ADLs during her recovery ie grocery shopping, meal prep or set up, chores, transportation. Patient states she will consider. PT/OT pending today. Patient is currently SDC, may end of staying another night if she fails with therapies and team determines an addtl. night will help stabilize patient for a safer discharge home with family tomorrow. F2F and HH order completed. Expect referral to [facility] per calendar rotation. FRANDY Harry Discharge Planning/Care Management CM Discharge Assessment Start: 03/05/24 09:36 Freq: Status: Active Protocol: Document 03/05/24 09:36 VIDHI (Rec: 03/05/24 09:38 VIDHI [id number]) Discharge Planning Assessment Assigned Product Blending Supervisor FRANDY Fontaine DPOA/Assigned Designee Name sister Polo Contact Information [phone] Advance Directives? No History Provided By Patient,Medical Record Prior Living Arrangements Apartment/Condo Household Members none Type of transporation used prior to Drives own vehicle admit Independent with ADL's Yes Is patient alert and oriented? Yes Patient/Family Preference Home with Home Health Comment Therapies pending. Patient plans to discharge home alone, HH, sister and daughter to help with groceries, meal prep , chores, transportation. Discharge Plan Home with Home Health Transportation Arrangement Family Referrals Initiated Home Health Additional Comment Patient has no agency preference
--- NOTE | 2024-03-05 10:23 | OT.IP.EVAL ---
Current Diagnoses Primary osteoarthritis, left shoulder (03/04/24) Pain due to internal orthopedic prosthetic devices, implants and grafts, initial encounter (03/04/24) Surgery Performed Operation Date: 03/04/24 12:00 Actual Procedures p Shoulder Removal of hardware reverse total shoulder arthroplasty with biceps tenodesis(Left) - Chris Villa MD Past Medical History (Last Updated 02/23/24 @ 14:32 by Sierra Jonas, RN) Arthritis Breast cancer, right (~2017) Chronic GERD Cirrhosis Degenerative disc disease Depression Diabetes History of COVID-19 (~2020) HLD (hyperlipidemia) HTN (hypertension) Hypothyroidism IBS (irritable bowel syndrome) Non-insulin dependent type 2 diabetes mellitus Pancytopenia Recovering alcoholic Restless leg syndrome Surgical History (Last Updated 02/23/24 @ 15:07 by Sierra Jonas RN) History of hysterectomy (1991) History of lumbosacral spine surgery (~2008) History of partial mastectomy of right breast (~2017) History of tonsillectomy History of total right hip replacement Hx of laminectomy (~2007) Hx of shoulder surgery (08/21/18) Occupational Therapy Inpatient Evaluation/Re-Eval M1 PT/OT-IP Prior Functional Status Start: 03/05/24 10:39 Freq: NEEDED Status: Active Protocol: Document 03/05/24 10:39 [facility] (Rec: 03/05/24 10:53 [facility] [id number]) Medical Review Prior Functional Status Communication Independent Mobility and Gait Independent with mobility with no devices. Pt states her right leg in longer than her left. Activities of Daily Living and IADL's Prior independent with all needs. Pt uses public transit and does not drive. Prior Functional Level (Other details) Pt states her daughter, sister , brother in law to help, but no one to be there to stay with her. Social History Household Members none Living Arrangements Apartment/Condo Number of Stairs To Enter/Railing? Pt able to use the elevator to get to her apartment. Home Environment Standard Height Toilet,Tub/ Shower Home Equipment Grab Bars In Shower M2 OT-IP Current Condition Start: 03/05/24 10:39 Freq: Status: Active Protocol: Document 03/05/24 10:39 [facility] (Rec: 03/05/24 10:53 [facility] [id number]) Occupational Therapy Current Condition Current Condition Evaluation Date 03/05/24 Treatment Diagnosis S/P L shoulder removal of hardware reverse TSA with biceps tenodesis Diagnosis Onset Date 03/04/24 Post Operative Precautions Shoulder Precautions Sling,No External Rotation Other Precautions Ok to take sling off for showers. Weight Bearing Status Weight Bearing Status Non-Weight Bearing M3 OT- IP Subjective and Pain Start: 03/05/24 10:39 Freq: Status: Active Protocol: Document 03/05/24 10:39 [facility] (Rec: 03/05/24 10:53 [facility] [id number]) OT- Subjective Occupational Therapy Visit Type Type Initial Evaluation Visit Start Time 09:40 Visit Stop Time 10:23 Occupational Therapy Visit Comments Patient Comments Pt wanting to get up to use the bathroom. Patient/Caregiver Goals TO go home. OT Pain Assessment Pain When Pain Assessed At Rest Pain Present Pain Present Pain Reported Location left shoulder Intensity 7 Scale Used Numeric (0 - 10) M4 OT- IP ADL's Start: 03/05/24 10:39 Freq: Status: Active Protocol: Document 03/05/24 10:39 [facility] (Rec: 03/05/24 10:53 [facility] [id number]) OT [id number] Comments OT Self-Feeding Comments Not at meal time. Pt will need assist with set-up due to just able to use right hand. OT ADL-Grooming Comments OT Grooming Comments Pt will need assist for set-up . OT ADL-Oral Care Comments Oral Care Comments Not performed. OT ADL-Dressing General Eval Upper Body Dressing Ability Maximum Assistance Lower Body Dressing Ability Maximum Assistance Areas Needing Assistance Socks Comments OT Dressing Comments MAX A for all sling management needs at this time. Pt attempted to try on her own and not able to do so and will need assist. OT ADL-Toileting General Evaluation Toileting Ability Standby Assistance Comments OT Toileting Comments Suggested pt get a BSC. Pt has a counter on the left side. OT ADL-Bathing Comments OT Bathing Comments Suggested to get a shower chair, HHSP and have assist from her family. M5 OT- IP IADL's Start: 03/05/24 10:39 Freq: Status: Active Protocol: Document 03/05/24 10:39 [facility] (Rec: 03/05/24 10:53 [facility] [id number]) OT-Instrumental Activities of Daily Living Deficits IADL Deficits Identified Deficits Home Safety Awareness Home Safety Comments Pt a little groggy and forgetful and would be best for someone to stay with pt initially at home. M6 OT- IP Functional Cognition Start: 03/05/24 10:39 Freq: Status: Active Protocol: Document 03/05/24 10:39 [facility] (Rec: 03/05/24 10:53 [facility] [id number]) Cognitive Factors Limiting Selfcare Function Cognitive Ability Level of Alertness Alert Patient Orientation Name,Age,Birthday,Month,Date, Year,Day of Week,Place, Situation Attention Span Ability Capable of Focused Attention, Capable of Sustained Attention Memory Description Short Term Impaired Cognitive Comments Cognitive Assessment Comments Pt has difficulty with STM and forgetting what she was in the middle of doing. Pt would greatly benefit from 10/02 assist at home initially. OT- Vision and Hearing OT- Hearing Assessment OT- Hearing Assessment WFL OT- Vision Assessment Visual Acuity Glasses For Reading Visual Attentiveness WFL Occular Pursuits WFL M7 OT- IP Mobility and Balance Start: 03/05/24 10:39 Freq: Status: Active Protocol: Document 03/05/24 10:39 [facility] (Rec: 03/05/24 10:53 [facility] [id number]) OT- Bed Mobility Assessment Supine to Sit Supine to Sit Assist Standby Assistance Sit to Supine Sit to Supine Assist Standby Assistance Scooting Scooting to Edge of Bed Standby Assistance Scooting Up and Down in Bed Standby Assistance OT-Transfer Assessment Sit to and From Stand Sit to and from Stand Standby Assistance Transfers Transfer Ability Standby Assistance,Contact Guard Assistance Technique Transfer Destination Bed,Toilet Transfer Technique Stand Step Pivot Comments Mobility Comments Pt able to get out of bed with SBA and walk in the room with close SBA to CGA at this time . Pt states to sleep in a recliner at home. OT- Balance Assessment Sitting Balance and Reactions Static Sitting Balance Ability Good Dynamic Sitting Balance Ability Fair Standing Balance and Reactions Static Standing Balance Ability Fair Dynamic Standing Balance Ability Fair M8 OT- IP Objective Assessments Start: 03/05/24 10:39 Freq: Status: Active Protocol: Document 03/05/24 10:39 [facility] (Rec: 03/05/24 10:53 [facility] [id number]) OT Gross Range of Motion Upper Extremity Range of Motion Assessment Left Impaired OT Strength Upper Extremity Strength Assessment Left Impaired M9 OT- IP Assessment and Plan Start: 08/16/24 10:39 Freq: Status: Active Protocol: Document 03/05/24 10:39 [facility] (Rec: 03/05/24 10:53 [facility] [id number]) OT Summary Assessment and Plan Potential Rehabilitation Potential Good Analytic Complexity at Evaluation Low Summary OT Impairments Pain,Range of Motion,Strength, Balance,Functional Cognition, Functional Mobility,Self- Feeding,Grooming,Dressing, Toileting,Bathing,Toilet Transfers,Shower Transfers Progress Towards Goals Progressing Toward Goals Assessment Summary Pt low complexity and main barriers are that pt will need assist for sling management needs, showers, IADL, and dressing needs at this time. Pt able to move on her feet with close SBA to occasional CGA for balance. Pt will benefit from 24/7 assist initially and home health at this time. Goals Self-Feeding Goal Independent Grooming Goal Independent Dressing Goal Minimal Assistance Toileting Goal Independent Bathing Goal Minimal Assistance Toilet Transfer Goal Independent Shower Transfer Goal Contact Guard Assistance Days to Meet Goals 5 Frequency of Treatment Other frequency 5x/week Treatment Plan OT Treatment Plan ADL Training,Functional Mobility,Patient/Family Education,Discharge Planning Discharge Recommendations OT Discharge Recommendations Home with 24/7 Assist Available,Home Health Home Equipment Needs BSC, shower chair, primer and powder canning leader Transportation Needs at Discharge Private Vehicle
--- NOTE | 2024-03-05 10:40 | PT.IIE ---
Current Diagnoses Primary osteoarthritis, left shoulder (03/04/24) Pain due to internal orthopedic prosthetic devices, implants and grafts, initial encounter (03/04/24) Surgery Performed Operation Date: 03/04/24 12:00 Actual Procedures p Shoulder Removal of hardware reverse total shoulder arthroplasty with biceps tenodesis(Left) - Chris Villa MD Surgical History (Last Updated 02/23/24 @ 15:07 by Sierra Jonas RN) History of hysterectomy (1991) History of lumbosacral spine surgery (~2008) History of partial mastectomy of right breast (~2017) History of tonsillectomy History of total right hip replacement Hx of laminectomy (~2007) Hx of shoulder surgery (08/21/18) Medical History (Last Updated 02/23/24 @ 14:32 by Sierra Jonas RN) Arthritis Breast cancer, right (~2017) Chronic GERD Cirrhosis Degenerative disc disease Depression Diabetes History of COVID-19 (~2020) HLD (hyperlipidemia) HTN (hypertension) Hypothyroidism IBS (irritable bowel syndrome) Non-insulin dependent type 2 diabetes mellitus Pancytopenia Recovering alcoholic Restless leg syndrome Physical Therapy Inpatient Evaluation/Re-Eval M1 PT/OT-IP Prior Functional Status Start: 03/05/24 12:56 Freq: NEEDED Status: Active Protocol: Document 03/05/24 10:40 AB (Rec: 03/05/24 13:14 AB [id number]) Medical Review Prior Functional Status Medical History Reviewed Yes Communication able to make needs known Mobility and Gait pt stated that she was indpeendent with all mobilities and ambulation without AD Activities of Daily Living and IADL's per OT note: Prior independent with all needs. Pt uses public transit and does not drive. Social History Household Members none Living Arrangements Apartment/Condo Number of Stairs To Enter/Railing? pt lives in a senior housing/ apartment complex: 3rd floow but with access to an elevator Home Environment Standard Height Toilet,Tub/ Shower,Elevator Home Equipment Grab Bars In Shower Additional Social History Comment pt stated that she has her sister and BRIAN that can assist her as needed but not be able to stay with her pt plans to sleep on her reclincer chair M2 PT-IP Current Condition Start: 03/05/24 12:56 Freq: NEEDED Status: Active Protocol: Document 03/05/24 10:40 AB (Rec: 03/05/24 13:14 AB [id number]) Physical Therapy Current Condition Current Condition Evaluation Date 03/05/24 Treatment Diagnosis s/p L TSA reverse; difficulty in walking Onset Date 03/04/24 M3 PT-IP Subjective Start: 03/05/24 12:56 Freq: NEEDED Status: Active Protocol: Document 03/05/24 10:40 AB (Rec: 03/05/24 13:14 AB [id number]) Subjective Physical Therapy Visit Type Type Initial Evaluation Visit Start Time 10:40 Visit Stop Time 11:15 Number of JAVA DESIGNER Visits 0 Physical Therapy Visit Comments Patient Comments agreeable to do PT Therapy Pain Assessment Pain When Pain Assessed At Rest Pain Present Pain Present Pain Reported Location left shoulder Intensity 6 Scale Used Numeric (0 - 10) Pain Management Techniques Distraction,Modification of Treatment,Re-positioning, Timing of Activity with Medications M4 PT-IP Mobility and Gait Start: 03/05/24 12:56 Freq: NEEDED Status: Active Protocol: Document 03/05/24 10:40 AB (Rec: 03/05/24 13:14 AB [id number]) PT-Bed Mobility Assessment Supine to Sit Supine to Sit Maximum Assistance Sit to Supine Sit to Supine Standby Assistance PT-Transfer Assessment Sit to and From Stand Sit to and from Stand Standby Assistance,1 Person Assistance,Use of Upper Extremities Equipment Transfer Assistive Device None,Gait Belt Orthotic/Prosthetic Devices or Brace: Yes Transfers Transfer Destination Bed,Chair Transfer Technique ambulated Transfer Ability Level of Assist Standby Assistance,Contact Guard Assistance,1 Person Assistance,Use of Upper Extremities Comments Mobility Comments pt sitting on the chair and agreeable to do PT. pt just finished with OT but did not remember. pt does not recall her precautions. obtained PLOF and home set up from pt. reviewed precautions again to pt and post-op handout. repositioned sling and pt completed elbow/wrist/hand HEP . conducted sling management training with pt but pt unable to complete without assisttance. pt completed sit to stand from the chair SBA and ambulated in room without AD SBA. pt presents with unsteady waddling gait but without LOB. pt ambulated to EOB and completed sit to supine SBA. required max A for sit to supine. pt plans to sleep on her reclincer at home. pt completed sit to stand from EOB SBA and step transfer to chair SBA. positioned pt on the chair. call light and table placed within reach. Gait Assessment Gait Gait Assistance Required: Standby Assistance,Contact Guard Assist Distance (Feet) 20 Able to Maintain Weight Bearing Status Yes During Gait Assistive Devices Assistive Device None Orthotic/Prosthetic Devices or Brace: Yes Gait Deviations General Gait Pattern Antalgic,Ataxic,Decreased Stride Length,Decreased Feet Clearance,Step-to Gait Factors Limiting Gait Function Factors Limiting Gait Function Decreased Activity Tolerance, Decreased Strength,Difficulty Following Directions,Limited Range of Motion,Pain,Poor Balance,Poor Safety Awareness PT-Balance Assessment Sitting Balance and Reactions Static Sitting Balance Ability Normal Dynamic Sitting Balance Ability Good Standing Balance and Reactions Static Standing Balance Ability Good Dynamic Standing Balance Ability Fair Device Used without AD M5 PT-IP Objective Assessments Start: 03/05/24 12:56 Freq: NEEDED Status: Active Protocol: Document 03/05/24 10:40 AB (Rec: 03/05/24 13:14 AB [id number]) Orientation Orientation/Cognition Level of Alertness Confusional State Orientation Name,Place,Situation Language Function Ability No Deficits Noted Safety Awareness Decreased Safety Awareness Memory Description Short Term Impaired Gross Range of Motion Lower Extremity ROM Assessment Within Functional Limits Strength Lower Extremity Strength Assessment Within Functional Limits Muscle Tone Muscle Tone WNL Yes M6 PT-IP Treatment Start: 03/05/24 12:56 Freq: NEEDED Status: Active Protocol: Document 03/05/24 10:40 AB (Rec: 03/05/24 13:14 AB [id number]) Physical Therapy Treatment Exercises Exercises Shoulder Flexion,Elbow Flexion /Extension,Wrist ROM,Hand ROM Education Education Provided Precautions,Weight Bearing Status,Post-Op Packet,Safety Brace Education [place],Patient Other Treatments Other Treatment Performed conducted sling management training with pt but pt unable and needs assistance M7 PT-IP Assessment and Plan Start: 03/05/24 12:56 Freq: NEEDED Status: Active Protocol: Document 03/05/24 10:40 AB (Rec: 03/05/24 13:14 AB [id number]) PT Summary Assessment and Plan Potential Rehabilitation Potential Fair Status of Condition at Evaluation Evolving Summary Impairments Pain,ROM,Strength,Balance, Coordination,Sensation,Tone, Cognition,Bed Mobility, Transfers,Gait,Activity Tolerance Assessment Summary pt is a 68 y/o F s/p L TSA reverse POD 1. pt with L shoulder precautions and is NWB on LUE. pt requiring max A for supine to sit but pt plans to sleep on her recliner . pt requiring SBA with transfers and ambulation without AD and presents with unsteady gait but without LOB. conducted sling management with pt but pt requiring assistance. Deferred ADL needs to OT. pt with decrease safety awareness and will require assistance at home. Currently, pt does not have consistent help at home. Goals Bed Mobility Goal Standby Assistance Transfer Goal Independent Gait Goal Independent Gait Distance 300 Days to Meet Goals 5 Frequency of Treatment Frequency Of Treatment Once a Day Treatment Plan Physical Therapy Treatment Plan Bed Mobility Training,Transfer Training,Gait Training, Therapeutic Exercise,Balance Retraining,Post Op Education, Discharge Planning,Hot or Cold Pack,Neuromuscular Re-ed, Coordination Retraining,Manual Therapy Precautions Shoulder Precautions Sling,PROM,Internal Rotation to Body,No External Rotation, No Abduction,Forward Flexion to 90 degrees,Pendulums Weight Bearing Status Weight Bearing Status Non-Weight Bearing Allowed Weight Bearing Amount (enter % LUE NWB or #) (%) Recommendations To Nursing Amount of Assist Needed 1 Person Assist Discharge Recommendations PT Discharge Recommendations Home with 10/02 Assist Available,Home Health,SNF Rehab,Home vs SNF Transportation Needs at Discharge Private Vehicle,Wheelchair/ Cabulance
[2024-03-05] MEDS: GABAPENTIN 300 MG CAPSULE PO ×3 (11:15→21:41)
[2024-03-05] MEDS: HYDROMORPHONE 2 MG TABLET PO (11:16)
--- NOTE | 2024-03-05 18:23 | DI.RAD.S_ITS ---
PROCEDURE: XR CHEST 1V INDICATIONS: decreased O2 sats TECHNIQUE: One view of the chest was acquired. COMPARISON: None. FINDINGS: Surgical changes and devices: Left shoulder arthroplasty. Lungs and pleura: Diffuse interstitial prominence. Low lung volumes bilaterally. Mild eventration of the right hemidiaphragm. Streaky bibasilar opacities more pronounced on the left. Minimal blunting of the bilateral costophrenic angles likely related to small pleural effusion. No pneumothorax. Mediastinum: Mediastinal contours appear normal. Heart size is normal. Bones and chest wall: No suspicious bony lesions. Overlying soft tissues appear unremarkable. IMPRESSION: Diffuse interstitial prominence and streaky bibasilar opacities. Suspected small bilateral pleural effusions. No dense consolidations. Findings may represent early pulmonary edema/CHF although concurrent infectious or inflammatory process not excluded. Dictated by: Alexander Freire M.D. on 03/05/2024 at 19:17 Approved by: Alexander Freire M.D. on 03/05/2024 at 19:18
--- NOTE | 2024-03-05 18:35 | PM.CN ---
History of Present Illness Consult details Date Patient Seen: 03/05/24 Time Patient Seen: 18:35 Chief complaint: OPB Reason for consult: Fever, and confusion. Requesting provider: Kira Baron Narrative: The patient is a 68-year-old female who is postop day 1 from a shoulder procedure. The patient was doing well until this morning when she was noted to be hypoxic. She was been on oxygen today. She has a history of smoking a half pack of cigarettes a day, but does not use home oxygen or have a history of CO2 retention. She also has a history of alcohol-induced cirrhosis with portal hypertension but is not drinking for some time. She does not appear to take home lactulose. A fever was noted this afternoon at approximately 6:00 p.m. as well as a possible change in her respiratory status. The patient is relatively coherent when I spoke with her and denies any difficulty with her breathing or cough. She also denies confusion, and states that she knows where she is. She denies any pain other than her shoulder, this is well-controlled with her current pain medications. Her temperature is 102?, she has been advised not to take Tylenol. There is ibuprofen ordered for fever. She lives in [facility]. She also has a history of pancytopenia, GERD, and diabetes. Meds Home Medications and Allergies Home Medications Medication Instructions Recorded Confirmed Type amlodipine 5 mg tablet 5 mg PO DAILY 02/23/24 03/04/24 History atorvastatin 20 mg tablet 20 mg PO BEDTIME 02/23/24 03/04/24 History bupropion HCl 300 mg 24 hr tablet, 300 mg PO QAM 02/23/24 03/04/24 History extended release buspirone 15 mg tablet 15 mg PO TID 02/23/24 02/23/24 History duloxetine 30 mg capsule,delayed 30 mg PO BEDTIME 02/23/24 03/04/24 History release duloxetine 60 mg capsule,delayed 60 mg PO BEDTIME 02/23/24 02/23/24 History release gabapentin 300 mg tablet,extended 300 mg PO TID 02/23/24 03/04/24 History release 24 hr levothyroxine 25 mcg tablet 25 mcg PO DAILY 02/23/24 03/04/24 History meloxicam 15 mg tablet 15 mg PO DAILY 02/23/24 03/04/24 History metformin 500 mg tablet 500 mg PO BID 02/23/24 03/04/24 History methocarbamol 750 mg tablet 750 mg PO TID 02/23/24 02/23/24 History naltrexone 50 mg tablet 50 mg PO DAILY 02/23/24 03/04/24 History omeprazole 20 mg capsule,delayed 20 mg PO DAILY 02/23/24 03/04/24 History release trazodone 100 mg tablet 100 mg PO BEDTIME 02/23/24 03/04/24 History Allergies Allergy/AdvReac Type Severity Reaction Status Date / Time latex Allergy Mild Rash Verified 03/04/24 10:44 Review of Systems Review of Systems Narrative: All else reviewed and otherwise unremarkable except as noted in the history and physical. Exam Vital Signs (past 8 hours): - 03/05/24 17:17 03/05/24 17:18 03/05/24 18:31 Temperature 102.5 F H 102.5 F H Pulse Rate 88 Respiratory Rate 17 Blood Pressure 133/61 Pulse Oximetry 91 91 Oxygen Delivery Method Nasal Cannula Oxygen Flow Rate 3 Oxygen Delivery Method Nasal Cannula Oxygen Flow Rate 3 Narrative Exam Narrative: NAD, alert and oriented, fluent speech, calm. She he was on O2 and has saturations in the mid 90s. She was somewhat somnolent, but arouses easily. She was oriented. She makes reasonable sense when answering questions. Normocephalic skull, EOMI, anicteric sclera, symmetric pupils. Oropharynx unremarkable, no droop. Neck supple, midline trachea, no adenopathy. Lungs clear, normal rate and effort. Heart regular, no murmur gallop or rub. Abdomen is soft, non distended and non tender. Extremities are free of edema. Skin is free of rash or lesions. Joints are not swollen or deformed. She was in a left shoulder immobilizer. . Objective Labs 03/05/24 05:50 03/05/24 05:50 Labs: Laboratory Results - last 24 hr 03/05/24 05:50 WBC 6.7 RBC 3.41 L Hgb 9.2 L Hct 28.6 L MCV 83.9 MCH 26.9 MCHC 32.1 RDW 15.1 H Plt Count 107 L Neut % (Auto) 71.1 Lymph % (Auto) 16.1 L Pierce % (Auto) 9.7 Eos % (Auto) 2.9 Baso % (Auto) 0.2 Neut # (Auto) 4800 Lymph # (Auto) 1100 Pierce # (Auto) 700 Eos # (Auto) 200 Baso # (Auto) 0 Sodium 135 L Potassium 4.0 Chloride 102 Carbon Dioxide 28 BUN 15 Creatinine 0.95 Estimated GFR > 60 BUN/Creatinine Ratio 15.8 Glucose 147 H Calcium 8.3 L PFSH Medical History History of COVID-19 (~2020) Depression Recovering alcoholic Breast cancer, right (~2017) Arthritis Diabetes Cirrhosis IBS (irritable bowel syndrome) HLD (hyperlipidemia) Pancytopenia Restless leg syndrome Chronic GERD Hypothyroidism Degenerative disc disease Non-insulin dependent type 2 diabetes mellitus HTN (hypertension) Surgical History History of partial mastectomy of right breast (~2017) Hx of shoulder surgery (08/21/18) History of total right hip replacement History of tonsillectomy History of hysterectomy (1991) Hx of laminectomy (~2007) History of lumbosacral spine surgery (~2008) Social History household members: none Tobacco & Substance Use Smoking Status: Current some day smoker alcohol intake: former Assessment & Plan Assessment & Plan narrative: 1. Acute hypoxic respiratory failure, new and active. 2. Possible acute septic or metabolic encephalopathy, new and active. 3. Fever, new and active. 4. Tobacco dependence and active smoker, present on admission and active. 5. Liver cirrhosis and portal hypertension, present on admission and active. Plan: -chest x-ray rule out aspiration pneumonia. -blood cultures, lactic acid. Start empiric antibiotics. -blood gas, rule out hypercarbic respiratory failure in the need for BiPAP as well as titration of O2 down. -CBC, CMP, and ammonia. Rule out other metabolic causes of confusion. -discussed the plan with Dr. Baron of orthopedics at approximately 6:30 p.m. Time-Based Coding :: 35 min spent with patient and on the chart (including review of chart, obtaining history, exam, reviewing outside data, placing orders, documenting exam and treatment plan, and counseling patient) on 03/05.
[2024-03-05] MEDS: PIPERACILLIN/TAZO 3.375 GM in SODIUM CHLORIDE 0.9% 100 ML IV (18:55)
[2024-03-05 19:01] LABS: Hematocrit 28.5 % (36-46); Hemoglobin 9.2 g/dL (12.0-16.0); Mean Corpuscular HGB Conc 32.3 % (30-36); Mean Corpuscular Hemoglobin 27.1 PG (26-34); Mean Corpuscular Volume 83.8 fL (80-100); Platelet Count 122 X10^3/uL (150-400); Red Blood Cell Count 3.41 X10^6/uL (4.0-5.2); Red Cell Distribution Width 15.4 % (11.6-14.8); White Blood Cell Count 9.1 X10^3/uL (4.5-11.0)
[2024-03-05 19:14] LABS: Alanine Aminotransferase 29 IU/L (<35); Albumin 3.6 g/dL (3.5-5.0); Albumin Globulin Ratio 1.3 (1.0-2.8); Alkaline Phosphatase 50 U/L (38-126); Aspartate Aminotransferase 46 IU/L (14-36); BUN Creatinine Ratio 17.1 (6-22); Blood Urea Nitrogen 20 mg/dL (7-17); Calcium 8.6 mg/dL (8.4-10.2); Carbon Dioxide 29 mmol/L (22-32); Chloride 100 mmol/L (98-107); Estimated Glomerular Filt Rate 51 mL/min (>60); Globulin 2.8 g/dL (1.7-4.1); Glucose 124 mg/dL (80-110); HEMOLYSIS < 15 (0-50); Potassium 4.5 mmol/L (3.4-5.1); Sodium 133 mmol/L (137-145); Total Protein 6.4 g/dL (6.3-8.2)
[2024-03-05 19:20] LABS: Allen Test for ABG Passed? Negative; Base Excess ABG 1.8 mmol/L (-2-3); Blood Gas Collection Site Right Brachial; Delivery System Cannula; HCO3 ABG 28 mmol/L (23-27); Oxygen Saturation ABG 92 % (95-100); PCO2 ABG 51.8 mmHg (35-45); PO2 ABG 69 mmHg (80-100); TCO2 ABG 29 mmol/L (23-27); pH ABG 7.35 (7.35-7.45)
[2024-03-05 19:22] LABS: Lactate (Lactic Acid) 0.9 mmol/L (0.7-2.1)
[2024-03-05 19:55] LABS: Ammonia (NH3) < 9 umol/L (9-30)
--- NOTE | 2024-03-05 20:01 | PC.NURSE ---
Pt awakened this am with RA sat of 80. O2 was started at 2L, IS used to 1500. Must be enc to cough, DB and use IS. Odalys CAI was made aware of patients decreased O2 sat. She is a smoker, her parameter has been set lower at 90% or greater already. She has also been having some pain issues but she is sleepy as well. PA will come back to recheck on her to see if she can go home. Pt received pain med but 2 hours later she could be heard calling out, when entering room she would be asleep. Name called, she has an exaggerated startle reflex. She is reporting pain at 9-10/10. Paged Antonio CAI to make him aware of pain. See his orders. She was given a dose of dilaudid. Pt worked with staff further. Given another dose of oxy for pain since she will be going to moved back to bed. Pt ended up feeling like she could not go home. Still having difficulty moving. Ra sats remain border line at 90% with cues for deep breathing and using IS. She is also still reporting having increased pain when she tries to move. Antonio CAI paged again to tell him discharge had been cancelled and her sats remain on the line at 90% and needs cues to use IS and breath. No further orders from Antonio CAI. confirmed discharge should be cancelled for now.Pt requesting to rest after all the business of the mid day. Returned to room at about 1600 for meds. Pt is more sleepy than she was this am. Does awaken when name called. But then falls asleep. O2 sat was 85-86%. Requires extensive cues to take deep breaths or use IS. Sat was up to 90-91 but once stimulation was stopped they would drop back down to mid 80's, 02 was replaced. RT called to come and eval/treat. RR is 14 or greater. O2 is on at 3L and sats are now consistently 90-91% again. Blood glucose check is 119. Pt feels warm and temp check 102.5 temporal, 103.[address] Baron was called at 1722 and 1751. Jocelin CO was notified of pt's condition. See orders from Dr. Baron and her call was sent to the main nurses station so they can page Hospitalist. She did speak with him. Hospitalist came and saw pt at about 1815. RT has been in and out checking on patient. They were here to draw abg's at about 191. Pt vitals at 1914 were T 100.6, P 78, RR 18. O2 sat on 3L is 93%. Pt appears sl more awake now. Does fall asleep quickly still though.
--- NOTE | 2024-03-05 20:22 | DI.CT.S_ITS ---
PROCEDURE: CT ANGIO CHEST INDICATIONS: suspected PE TECHNIQUE: After the administration of intravenous contrast, 2 mm thick sections acquired from the pulmonary apices to the posterior costophrenic angles. 3-dimensional maximum intensity projection (MIP) coronal and sagittal reformats were then acquired through the thorax. For radiation dose reduction, the following was used: automated exposure control, adjustment of mA and/or kV according to patient size. COMPARISON: None. FINDINGS: Image quality: Suboptimal due to motion artifact. Pulmonary arteries: Pulmonary arteries are normal in size, and demonstrate no intraluminal filling defects to suggest central pulmonary embolism. Lower Neck: No enlarged lymph nodes. Thyroid: No thyroid nodules which require sonographic follow up, per consensus guidelines. Axillae: No enlarged lymph nodes. Chest Wall: Unremarkable. Bones: Interval left shoulder arthroplasty placement. Lungs and Pleura: No pneumothorax or pleural effusions. Smooth interstitial thickening, mild perihilar ground-glass, diffuse bronchial thickening. Bibasilar atelectasis. Heart: Heart size is enlarged, with moderate coronary artery calcifications for age. No pericardial effusion. Thoracic Vessels: No aortic aneurysm. Mediastinum and Theresa: No enlarged lymph nodes. Esophagus: No wall thickening. No hiatal hernia. Upper Abdomen: Cirrhotic liver morphology. Distended gallbladder. IMPRESSION: Suboptimal due to motion artifact. No pulmonary embolus. Moderate pulmonary edema. Dictated by: Dale Amaya M.D. on 03/05/2024 at 22:09 Approved by: Dale Amaya M.D. on 03/05/2024 at 22:16
[2024-03-05] MEDS: DULOXETINE 30 MG CAPSULE 90 MG PO (21:41)
[2024-03-05] MEDS: buPROPion XL 150 MG TAB 300 MG PO (21:41)
[2024-03-05] MEDS: ATORVASTATIN 20 MG TABLET PO (21:42)
[2024-03-05] MEDS: TRAZODONE 50 MG TABLET 100 MG PO (21:42)
[2024-03-05] MEDS: FUROSEMIDE 20 MG/2 ML VIAL 40 MG IV (23:11)
[2024-03-06] VITALS (8 sets, daily range): BP systolic 106–126; BP diastolic 51–58; PULSE 74–95; RESP 17–19; TEMP 36.2–37; O2SAT 82–94
[2024-03-06] MEDS: OXYCODONE IR 10 MG TABLET PO ×3 (02:43→23:11)
[2024-03-06] MEDS: PIPERACILLIN/TAZO 3.375 GM in SODIUM CHLORIDE 0.9% 100 ML IV ×3 (03:28→18:49)
[2024-03-06] MEDS: PANTOPRAZOLE DR 20 MG TABLET PO (06:19)
[2024-03-06] MEDS: LEVOTHYROXINE 25 MCG TABLET PO (06:19)
--- NOTE | 2024-03-06 08:01 | PC.NURSE ---
0320: Patient voided 250cc, unable to empty bladder. Bladder scan = 999. Straight cathed with return of 1025cc of clear yellow urine. Patient tolerated procedure well. Patient appears to have sleep apnea, while sleeping POX dipping down to 80s with O2 3.5L NC. Patient is a mouth breather. When patient woken, POX increases quickly to low 90s. Oximask with O2 4L applied, POX 93%. Discussed need with patient to get a sleep study after hospitalization.
--- NOTE | 2024-03-06 08:32 | DI.ECHO.S_ITS ---
[facility]+ [facility] : : [address] : : [place] : : [address] : : Phone: [phone] Echocardiogram Report + + :Name: ALICIA CASTRO Study Date: 03/06/2024 Height: 68 in : :[facility] ReadingLocation: Weight: 170 lb : : Gender: Female BSA: 1.9 m2 : :: 1955 Age: 68 yrs BP: 110/58 mmHg: :Reason For Study: PULMONARY EDEMA : : Performed By: Ute Bhakta : :Referring: NANNETTE MEDINA L : + + Interpretation Summary Normal sinus rhythm. Normal LV size, wall thickness, wall motion and LV systolic function. EF is 55-60%. Normal chamber sizes. Aortic sclerosis without stenosis. No evidence of pulmonary hypertension. No prior study available for comparison. Procedure: A two-dimensional transthoracic echocardiogram with color flow and Doppler was performed. Most of the acoustic windows were suboptimal, but the best imaging was obtained from the parasternal window. The patient is sitting in a chair with her left arm in a sling. The patient was in normal sinus rhythm during the exam. Left Ventricle: The left ventricle is normal in size and wall thickness. There is no ventricular septal defect visualized. The ejection fraction is estimated to be 55-60%. There are no obvious focal wall motion abnormalities noted but poor endocardial definition reduces the sensitivity for the detection of such. Diastolic parameters suggest a relaxation abnormality of the left ventricle, consistent with probable normal filling pressures. Right Ventricle: The right ventricle grossly appears normal in size with probable normal systolic function. Atria: Both atria are normal in size. There is no Doppler evidence for an interatrial shunt. Mitral Valve: The mitral valve is normal in structure and function. There is trace mitral regurgitation. Aortic Valve: The aortic valve is trileaflet. The aortic valve opens well. No aortic regurgitation is present. Tricuspid Valve: The tricuspid valve leaflets are thin and pliable. There is mild tricuspid regurgitation. The right ventricular systolic pressure is estimated to be at least 32 mmHg based on an estimated right atrial pressure of 3 mm Hg. Pulmonic Valve: The pulmonic valve is not well seen, but is grossly normal. There is trace pulmonic regurgitation. Great Vessels: The aortic root is normal size. The ascending aorta is at the upper limits of normal in size. The IVC is of normal diameter and collapses greater than 50% with a sniff. This suggests a low right atrial pressure of 3 mm Hg. Pericardium/ Pleura There is no pericardial effusion. MMode/2D Measurements & Calculations LVIDd: 4.5 cm LVOT diam: 1.9 cm LVIDs: 2.6 cm Ao root diam: 3.6 cm FS: 42.7 % asc Aorta Diam: 3.5 cm EPSS: 0.80 cm IVSd: 0.72 cm LVPWd: 0.89 cm LV jaquez. diameter/BSA (cm/m^2): 2.4 LV sys. diameter/BSA (cm/m^2): 1.3 LA A2 area: 14.0 cm2 RA long axis: 4.7 cm LA A4 area: 14.7 cm2 RA area: 11.3 cm2 LA length (vol): 4.9 cm RA vol: 23.2 ml LA vol: 35.8 ml RA : 12.2 ml/m2 LA vol index: 18.8 ml/m2 IVC diam: 1.2 cm RVD1 (basal): 2.6 cm TAPSE: 2.2 cm Doppler Measurements & Calculations Ao V2 max: 166.4 cm/sec LVOT Max Brijesh: 68.3 cm/sec Ao V2 mean: 115.5 cm/sec LV V1 max P.9 mmHg Ao max P.1 mmHg LV V1 VTI: 16.2 cm Ao mean P.1 mmHg MICHAELA(I,D): 1.7 cm2 Ao V2 VTI: 27.2 cm MICHAELA(V,D): 1.2 cm2 sev ratio: 0.60 MICHAELA indexed to BSA (cm^2/m^2): 0.88 MV E max brijesh: 53.4 cm/sec TR max brijesh: 266.9 cm/sec MV A max brijesh: 63.1 cm/sec TR max P.5 mmHg MV E/A: 0.85 PA V2 max: 90.5 cm/sec Med Peak E' Brijesh: 7.2 cm/sec PA V2 mean: 57.5 cm/sec E/E' med: 7.5 PA mean P.5 mmHg Lat Peak E' Brijesh: 8.4 cm/sec PA pr(Accel): 26.3 mmHg E/E' lat: 6.4 E/e' average: 6.9 MV dec time: 0.18 sec SV(LVOT): 45.5 ml Electronically signed by: Ritika Silva M.D. on Reading Physician:03/06/2024 04:58 PM
--- NOTE | 2024-03-06 08:33 | P.PN_ITS ---
Subjective Subjective Interval history: Interval summary: The patient is a 68-year-old female who is postop day 1 from a shoulder procedure. The patient was doing well until this morning when she was noted to be hypoxic. She was been on oxygen today. She has a history of smoking a half pack of cigarettes a day, but does not use home oxygen or have a history of CO2 retention. She also has a history of alcohol-induced cirrhosis with portal hypertension but is not drinking for some time. She does not appear to take home lactulose. A fever was noted this afternoon at approximately 6:00 p.m. as well as a possible change in her respiratory status. The patient is relatively coherent when I spoke with her and denies any difficulty with her breathing or cough. She also denies confusion, and states that she knows where she is. She denies any pain other than her shoulder, this is well-controlled with her current pain medications. Her temperature is 102?, she has been advised not to take Tylenol. There is ibuprofen ordered for fever. She lives in [facility]. She also has a history of pancytopenia, GERD, and diabetes. CXR: pulmonary edema. S: Her breathing feels good today, she was weaned off from oxygen. No chest pain. She was a little bit sleepy from her pain medications. Her left shoulder is not painful. Chest x-ray revealed pulmonary edema, and echo today is pending. Exam Vital Signs (past 8 hours): - 03/06/24 01:41 03/06/24 03:00 03/06/24 03:20 Temperature 97.2 F L Pulse Rate 86 Respiratory Rate 18 Blood Pressure 126/57 L Pulse Oximetry 91 90 L 90 L Oxygen Flow Rate 3.5 3.5 3.5 03/06/24 04:30 03/06/24 04:35 Temperature Pulse Rate Respiratory Rate Blood Pressure Pulse Oximetry 82 L 93 Oxygen Flow Rate 3.5 4 Oxygen Delivery Method Nasal Cannula Oxygen Flow Rate 4 Narrative Exam Narrative: NAD, alert and oriented. Fluent speech. Lungs are clear, normal rate and effort. Heart is regular, 3/6 systolic murmur with no gallop or rub. Abdomen is soft, non distended. Extremities are free of edema. Objective Imaging Chest x-ray: Radiologist's impression: Pulmonary edema. Labs 03/05/24 18:45 03/05/24 18:45 Labs: Laboratory Results - last 24 hr 03/05/24 03/05/24 03/05/24 18:45 19:17 Unknown WBC 9.1 RBC 3.41 L Hgb 9.2 L Hct 28.5 L MCV 83.8 MCH 27.1 MCHC 32.3 RDW 15.4 H Plt Count 122 L ABG Sample Site Right brachial ABG pH 7.35 ABG pCO2 51.8 H ABG pO2 69 L ABG HCO3 28 H ABG Total CO2 29 H ABG O2 Saturation 92 L ABG Base Excess 1.8 Parvez Test Negative O2 Delivery Device Cannula FiO2 % 36.0 % Sodium 133 L Potassium 4.5 Chloride 100 Carbon Dioxide 29 BUN 20 H Creatinine 1.17 H Estimated GFR 51 L BUN/Creatinine Ratio 17.1 Glucose 124 H Lactate 0.9 Calcium 8.6 Total Bilirubin 1.0 AST 46 H ALT 29 Alkaline Phosphatase 50 Ammonia < 9 L Total Protein 6.4 Albumin 3.6 Globulin 2.8 Albumin/Globulin Ratio 1.3 PFSH Medical History History of COVID-19 (~2020) Depression Recovering alcoholic Breast cancer, right (~2017) Arthritis Diabetes Cirrhosis IBS (irritable bowel syndrome) HLD (hyperlipidemia) Pancytopenia Restless leg syndrome Chronic GERD Hypothyroidism Degenerative disc disease Non-insulin dependent type 2 diabetes mellitus HTN (hypertension) Surgical History History of partial mastectomy of right breast (~2017) Hx of shoulder surgery (08/21/18) History of total right hip replacement History of tonsillectomy History of hysterectomy (1991) Hx of laminectomy (~2007) History of lumbosacral spine surgery (~2008) Social History household members: none Smoking Status: Current some day smoker alcohol intake: former Assessment & Plan Assessment & Plan narrative: 1. Acute hypoxic respiratory failure secondary to pulmonary edema, new and active. 2. Possible acute septic or metabolic encephalopathy, new and active. 3. Fever, new and active. 4. Tobacco dependence and active smoker, present on admission and active. 5. Liver cirrhosis and portal hypertension, present on admission and active. Plan: -Diuresis -wean O2 -monitor mental status -ECHO. -discussed with Orthopedics, they feel that is fdc facility as indicated. Preparations are being made. Time-Based Coding :: 20 min spent with patient and on the chart (including review of chart, obtaining history, exam, reviewing outside data, placing orders, documenting exam and treatment plan, and counseling patient) on 03/06. Quality VTE Deep Vein Thrombosis/Pulmonary Embolism Present on Admission: No
[2024-03-06] MEDS: ASPIRIN EC 81 MG TABLET PO ×2 (09:36→20:11)
[2024-03-06] MEDS: MELOXICAM 7.5 MG TABLET 15 MG PO (09:37)
[2024-03-06] MEDS: DOCUSATE 100 MG CAPSULE PO ×2 (09:37→20:12)
[2024-03-06] MEDS: IBUPROFEN 600 MG TABLET PO ×2 (09:38→17:32)
[2024-03-06] MEDS: methocarbamoL 500 MG TABLET 750 MG PO ×3 (09:39→23:12)
[2024-03-06] MEDS: METFORMIN HCL 500 MG TABLET PO (09:39)
[2024-03-06] MEDS: BUSPIRONE 5 MG TABLET 15 MG PO ×3 (09:41→20:11)
[2024-03-06] MEDS: GABAPENTIN 300 MG CAPSULE PO ×3 (09:42→20:11)
[2024-03-06] MEDS: AMLODIPINE 5 MG TABLET PO (09:43)
[2024-03-06] MEDS: polyethylene glycoL 3350 17 GM POWD.PACK PO (09:43)
--- NOTE | 2024-03-06 10:15 | PT.IPTN ---
Current Diagnoses Primary osteoarthritis, left shoulder (03/04/24) Pain due to internal orthopedic prosthetic devices, implants and grafts, initial encounter (03/04/24) Surgery Performed Operation Date: 03/04/24 12:00 Actual Procedures p Shoulder Removal of hardware reverse total shoulder arthroplasty with biceps tenodesis(Left) - Chris Villa MD Physical Therapy Treatment Note M2 PT-IP Current Condition Start: 03/05/24 12:56 Freq: NEEDED Status: Active Protocol: Document 03/05/24 10:40 AB (Rec: 03/05/24 13:14 AB [id number]) Physical Therapy Current Condition Current Condition Evaluation Date 03/05/24 Treatment Diagnosis s/p L TSA reverse; difficulty in walking Onset Date 03/04/24 M3 PT-IP Subjective Start: 03/05/24 12:56 Freq: NEEDED Status: Active Protocol: Document 03/06/24 10:15 AB (Rec: 03/06/24 12:44 AB [id number]) Subjective Physical Therapy Visit Type Type Treatment Note Visit Start Time 10:15 Visit Stop Time 11:10 Number of PALLETIZER Visits 0 Physical Therapy Visit Comments Patient Comments agreeable to do PT Therapy Pain Assessment Pain When Pain Assessed At Rest Pain Present Pain Present Pain Reported Location left shoulder Intensity 5 Scale Used Numeric (0 - 10) Pain Management Techniques Distraction,Modification of Treatment,Re-positioning, Timing of Activity with Medications M4 PT-IP Mobility and Gait Start: 03/05/24 12:56 Freq: NEEDED Status: Active Protocol: Document 03/06/24 10:15 AB (Rec: 03/06/24 12:44 AB [id number]) PT-Bed Mobility Assessment Supine to Sit Supine to Sit Maximum Assistance,1 Person Assistance,Head of Bed Elevated PT-Transfer Assessment Sit to and From Stand Sit to and from Stand Minimal Assistance,1 Person Assistance,Use of Upper Extremities Equipment Transfer Assistive Device None,Gait Belt Orthotic/Prosthetic Devices or Brace: Yes Transfers Transfer Destination Toilet Transfer Technique ambulated Transfer Ability Level of Assist Minimal Assistance,1 Person Assistance,Use of Upper Extremities Comments Mobility Comments pt supine in bed and agreeable to do PT. pt requesting to use the toilet. with O2 sat at RA: 87%. put O2 back on pt at 3L/min: 94% sat. pt stated that she took off her O2 to eat breakfast. pt with memory issues affecting safety awareness. pt completed supine to sit max A and max cues. pt completed sit to stand min A and cues. initial LOB needing min A for steadiness. pt with increase retrolean during standing. pt ambulated to the toilet without AD min A and cues. presents with unsteady gait and pt tending to hold on to wall for support. pt required assist with toileting needs. ambulated to the sink min A without AD and was able to complete handwashing CGA to min A for standing balance. pt ambulated to chair wihtout AD min A. assisted pt with sling management. completed elbow/wrist/hand exercises while off the sling. donned sling on pt. positioned pt on the chair. call light and table placed within reach. Gait Assessment Gait Gait Assistance Required: Minimum Assistance Distance (Feet) 10 Able to Maintain Weight Bearing Status Yes During Gait Assistive Devices Assistive Device None,Gait Belt Orthotic/Prosthetic Devices or Brace: Yes Gait Deviations General Gait Pattern Antalgic,Ataxic,Decreased Stride Length,Decreased Feet Clearance Factors Limiting Gait Function Factors Limiting Gait Function Decreased Activity Tolerance, Decreased Strength,Difficulty Following Directions,Limited Range of Motion,Pain,Poor Balance,Poor Safety Awareness, Respiratory Distress M5 PT-IP Objective Assessments Start: 03/05/24 12:56 Freq: NEEDED Status: Active Protocol: Document 03/05/24 10:40 AB (Rec: 03/05/24 13:14 AB [id number]) Orientation Orientation/Cognition Level of Alertness Confusional State Orientation Name,Place,Situation Language Function Ability No Deficits Noted Safety Awareness Decreased Safety Awareness Memory Description Short Term Impaired Gross Range of Motion Lower Extremity ROM Assessment Within Functional Limits Strength Lower Extremity Strength Assessment Within Functional Limits Muscle Tone Muscle Tone WNL Yes M6 PT-IP Treatment Start: 03/05/24 12:56 Freq: NEEDED Status: Active Protocol: Document 03/06/24 10:15 AB (Rec: 03/06/24 12:44 AB [id number]) Physical Therapy Treatment Exercises Exercises Elbow Flexion/Extension,Wrist ROM,Hand ROM Education Education Provided Precautions,Weight Bearing Status,Safety M7 PT-IP Assessment and Plan Start: 03/05/24 12:56 Freq: NEEDED Status: Active Protocol: Document 03/06/24 10:15 AB (Rec: 03/06/24 12:44 AB [id number]) PT Summary Assessment and Plan Potential Rehabilitation Potential Fair Summary Impairments Pain,ROM,Strength,Balance, Coordination,Sensation,Tone, Cognition,Bed Mobility, Transfers,Gait,Activity Tolerance Progress Towards Goals Slow Progress - Other Assessment Summary pt needing increase assistance today compared to yesterday. pt requirig min A with ambulation without AD and presents with unsteady gait. pt also needing supplemental O2 today and O2 at RA is at 87 %. pt will require SNF rehab to improve overall strength and independence. Goals Bed Mobility Goal Standby Assistance Transfer Goal Independent Gait Goal Independent Gait Distance 300 Days to Meet Goals 5 Frequency of Treatment Frequency Of Treatment Once a Day Treatment Plan Physical Therapy Treatment Plan Bed Mobility Training,Transfer Training,Gait Training, Therapeutic Exercise,Balance Retraining,Post Op Education, Discharge Planning,Hot or Cold Pack,Neuromuscular Re-ed, Coordination Retraining,Manual Therapy Precautions Shoulder Precautions Sling,PROM,Internal Rotation to Body,No External Rotation, No Abduction,Forward Flexion to 90 degrees,Pendulums Weight Bearing Status Weight Bearing Status Non-Weight Bearing Allowed Weight Bearing Amount (enter % LUE NWB or #) (%) Recommendations To Nursing Amount of Assist Needed 1 Person Assist Discharge Recommendations PT Discharge Recommendations SNF Rehab Transportation Needs at Discharge Private Vehicle,Wheelchair/ Cabulance
--- NOTE | 2024-03-06 10:17 | P.PN_ITS ---
Subjective Subjective Date Patient Seen: 03/06/24 Time Patient Seen: 10:17 Interval history: Shoulder pain has been moderate to severe. Denies any shortness of breath or chest pain. No numbness tingling left upper extremity. Patient does live alone. Exam Vital Signs (past 8 hours): - 03/06/24 03:00 03/06/24 03:20 03/06/24 04:30 Temperature Pulse Rate Respiratory Rate Blood Pressure Pulse Oximetry 90 L 90 L 82 L Oxygen Flow Rate 3.5 3.5 3.5 03/06/24 04:35 03/06/24 08:00 Temperature 98.1 F Pulse Rate 74 Respiratory Rate 17 Blood Pressure 107/58 L Pulse Oximetry 93 92 Oxygen Flow Rate 4 Oxygen Delivery Method Nasal Cannula Oxygen Flow Rate 4 Narrative Exam Narrative: 68-year-old female resting comfortably in bed in no apparent distress. Left shoulder dressing is clean, dry and intact. Motor functions intact distal left upper extremity. Sensation grossly intact to light touch distal left upper extremity. Const General: cooperative and comfortable Nutritional Appearance: average body habitus Orientation: alert Resp Effort & Inspection: normal respiratory effort and able to speak in complete sentences Objective Imaging CTA chest March 05, 2024: Radiologist's impression: IMPRESSION: Suboptimal due to motion artifact. No pulmonary embolus. Moderate pulmonary edema. Labs 03/05/24 18:45 03/05/24 18:45 Labs: Laboratory Results - last 24 hr 03/05/24 03/05/24 03/05/24 18:45 19:17 Unknown WBC 9.1 RBC 3.41 L Hgb 9.2 L Hct 28.5 L MCV 83.8 MCH 27.1 MCHC 32.3 RDW 15.4 H Plt Count 122 L ABG Sample Site Right brachial ABG pH 7.35 ABG pCO2 51.8 H ABG pO2 69 L ABG HCO3 28 H ABG Total CO2 29 H ABG O2 Saturation 92 L ABG Base Excess 1.8 Parvez Test Negative O2 Delivery Device Cannula FiO2 % 36.0 % Sodium 133 L Potassium 4.5 Chloride 100 Carbon Dioxide 29 BUN 20 H Creatinine 1.17 H Estimated GFR 51 L BUN/Creatinine Ratio 17.1 Glucose 124 H Lactate 0.9 Calcium 8.6 Total Bilirubin 1.0 AST 46 H ALT 29 Alkaline Phosphatase 50 Ammonia < 9 L Total Protein 6.4 Albumin 3.6 Globulin 2.8 Albumin/Globulin Ratio 1.3 [facility] Medical History History of COVID-19 (~2020) Depression Recovering alcoholic Breast cancer, right (~2017) Arthritis Diabetes Cirrhosis IBS (irritable bowel syndrome) HLD (hyperlipidemia) Pancytopenia Restless leg syndrome Chronic GERD Hypothyroidism Degenerative disc disease Non-insulin dependent type 2 diabetes mellitus HTN (hypertension) Surgical History History of partial mastectomy of right breast (~2017) Hx of shoulder surgery (08/21/18) History of total right hip replacement History of tonsillectomy History of hysterectomy (1991) Hx of laminectomy (~2007) History of lumbosacral spine surgery (~2008) Social History household members: none Smoking Status: Current some day smoker alcohol intake: former Assessment & Plan Post-op Postoperative Procedures: Procedures Operation Date: 03/04/24 12:00 Actual Procedure Side Surgeon p Shoulder Removal of hardware reverse total shoulder arthroplasty with biceps tenodesis Left Chris Villa MD Postoperative day: 2 Postoperative status narrative: Stable Postoperative plan narrative: status post removal of hardware, deep implant, left proximal humerus, reverse total shoulder arthroplasty March 04, 2024 Sling to remain on for 6 weeks, no external rotation past neutral for 6 weeks, okay for sling to come off to shower Hospitalist consult yesterday March 05, 2024 for fever and confusion Diagnosed with acute hypoxic respiratory failure, new and active, possible acute septic or metabolic encephalopathy, new and active, fever, new inactive, tobacco dependence and active smoker, present on admission and active, liver cirrhosis and portal hypertension present on admission and active. Dr. Diaz following and appreciate his recommendations. Current plan is diuresis, wean off O2, monitor mental status, echo while inpatient Disposition, custodial facility likely tomorrow Quality VTE Deep Vein Thrombosis/Pulmonary Embolism Present on Admission: No
--- NOTE | 2024-03-06 15:30 | CM.DPNOTE ---
DCP Cont Patient now INPT as of 03/06. Therapies recommending SNF and patient agreeable. Attempted discussion multiple times this afternoon, patient getting imaging at bedside then soundly sleeping. Hospital exempt PASRR completed in anticipation of SNF, needs provider signature. Need SNF preference and referrals. Patient will now be Medicare ready for discharge to SNF 03/09 JW
[2024-03-06] MEDS: OXYCODONE IR 5 MG TABLET PO (17:33)
[2024-03-06] MEDS: INSULIN LISPRO 100 UNIT/ML 3ML VIAL SUBCUT (17:35)
[2024-03-06] MEDS: TRAZODONE 50 MG TABLET 100 MG PO (20:11)
[2024-03-06] MEDS: DULOXETINE 30 MG CAPSULE 90 MG PO (20:11)
[2024-03-06] MEDS: buPROPion XL 150 MG TAB 300 MG PO (20:11)
[2024-03-06] MEDS: ATORVASTATIN 20 MG TABLET PO (20:12)
[2024-03-07] MEDS: PIPERACILLIN/TAZO 3.375 GM in SODIUM CHLORIDE 0.9% 100 ML IV ×3 (03:20→19:19)
[2024-03-07] MEDS: OXYCODONE IR 5 MG TABLET PO (06:07)
[2024-03-07] MEDS: PANTOPRAZOLE DR 20 MG TABLET PO (06:07)
[2024-03-07] MEDS: LEVOTHYROXINE 25 MCG TABLET PO (06:07)
[2024-03-07 08:00] VITALS: BP 113/57; PULSE 74; RESP 18; TEMP 36.2; O2SAT 97
--- NOTE | 2024-03-07 08:39 | PM.PNPO.1 ---
Subjective Subjective Date Patient Seen: 03/07/24 Time Patient Seen: 08:39 Interval history: Patient states her pain has been moderate to severe. No shortness of breath or chest pain. No cough. No fever chills. No numbness and tingling left upper extremity. Exam Vital Signs (past 8 hours): Oxygen Delivery Method Oximask Oxygen Flow Rate 3 Narrative Exam Narrative: 68-year-old female sleeping comfortably in bed in no apparent distress. Patient is currently on 3 L oxygen via mask. Sling is in place. Dressing is clean, dry and intact. Neurovascular status is intact distal left upper extremity. Const General: cooperative and comfortable Nutritional Appearance: average body habitus Orientation: alert Resp Effort & Inspection: normal respiratory effort and able to speak in complete sentences Objective Imaging Echo: Radiologist's impression: Echocardiogram results from March 06, [address] [address] Echocardiography Report Signed Patient: Ankita Kinney MR#: [id number] : 1955 Acct:[id number] Age/Sex: 68 / F Date of Service: 03/06/24 Loc: 208-1 Accession Number: [id number] Procedure: EC echo doppler complete Ordering Provider: Parvez Diaz MD [facility] +---------+ Hospital : : [address] [place] [address]. : : [place], [place] : : [id number] : : Phone: [phone] Echocardiogram Report + + :Name: ANKITA KINNEY Study Date: 03/06/2024 Height: 68 in : :[facility] ReadingLocation: Weight: 170 lb : : Gender: Female BSA: 1.9 m2 : :: 1955 Age: 68 yrs BP: 110/58 mmHg: :Reason For Study: PULMONARY EDEMA : : Performed By: Ute Ofstad : :Referring: ADAM, PARVEZ L : + + Interpretation Summary Normal sinus rhythm. Normal LV size, wall thickness, wall motion and LV systolic function. EF is 55-60%. Normal chamber sizes. Aortic sclerosis without stenosis. No evidence of pulmonary hypertension. No prior study available for comparison. Procedure: A two-dimensional transthoracic echocardiogram with color flow and Doppler was performed. Most of the acoustic windows were suboptimal, but the best imaging was obtained from the parasternal window. The patient is sitting in a chair with her left arm in a sling. The patient was in normal sinus rhythm during the exam. Left Ventricle: The left ventricle is normal in size and wall thickness. There is no ventricular septal defect visualized. The ejection fraction is estimated to be 55-60%. There are no obvious focal wall motion abnormalities noted but poor endocardial definition reduces the sensitivity for the detection of such. Diastolic parameters suggest a relaxation abnormality of the left ventricle, consistent with probable normal filling pressures. Right Ventricle: The right ventricle grossly appears normal in size with probable normal systolic function. Atria: Both atria are normal in size. There is no Doppler evidence for an interatrial shunt. Mitral Valve: The mitral valve is normal in structure and function. There is trace mitral regurgitation. Aortic Valve: The aortic valve is trileaflet. The aortic valve opens well. No aortic regurgitation is present. Tricuspid Valve: The tricuspid valve leaflets are thin and pliable. There is mild tricuspid regurgitation. The right ventricular systolic pressure is estimated to be at least 32 mmHg based on an estimated right atrial pressure of 3 mm Hg. Pulmonic Valve: The pulmonic valve is not well seen, but is grossly normal. There is trace pulmonic regurgitation. Great Vessels: The aortic root is normal size. The ascending aorta is at the upper limits of normal in size. The IVC is of normal diameter and collapses greater than 50% with a sniff. This suggests a low right atrial pressure of 3 mm Hg. Pericardium/ Pleura There is no pericardial effusion. MMode/2D Measurements & Calculations LVIDd: 4.5 cm LVOT diam: 1.9 cm LVIDs: 2.6 cm Ao root diam: 3.6 cm FS: 42.7 % asc Aorta Diam: 3.5 cm EPSS: 0.80 cm IVSd: 0.72 cm LVPWd: 0.89 cm LV jaquez. diameter/BSA (cm/m^2): 2.4 LV sys. diameter/BSA (cm/m^2): 1.3 LA A2 area: 14.0 cm2 RA long axis: 4.7 cm LA A4 area: 14.7 cm2 RA area: 11.3 cm2 LA length (vol): 4.9 cm RA vol: 23.2 ml LA vol: 35.8 ml RA : 12.2 ml/m2 LA vol index: 18.8 ml/m2 IVC diam: 1.2 cm RVD1 (basal): 2.6 cm TAPSE: 2.2 cm Doppler Measurements & Calculations Ao V2 max: 166.4 cm/sec LVOT Max Brijesh: 68.3 cm/sec Ao V2 mean: 115.5 cm/sec LV V1 max P.9 mmHg Ao max P.1 mmHg LV V1 VTI: 16.2 cm Ao mean P.1 mmHg MICHAELA(I,D): 1.7 cm2 Ao V2 VTI: 27.2 cm MICHAELA(V,D): 1.2 cm2 sev ratio: 0.60 MICHAELA indexed to BSA (cm^2/m^2): 0.88 MV E max brijesh: 53.4 cm/sec TR max brijesh: 266.9 cm/sec MV A max brijesh: 63.1 cm/sec TR max P.5 mmHg MV E/A: 0.85 PA V2 max: 90.5 cm/sec Med Peak E' Brijesh: 7.2 cm/sec PA V2 mean: 57.5 cm/sec E/E' med: 7.5 PA mean P.5 mmHg Lat Peak E' Brijesh: 8.4 cm/sec PA pr(Accel): 26.3 mmHg E/E' lat: 6.4 E/e' average: 6.9 MV dec time: 0.18 sec SV(LVOT): 45.5 ml Electronically signed by: Ritika Silva M.D. on Reading Physician:03/06/2024 04:58 PM Labs 03/05/24 18:45 03/05/24 18:45 PFS Medical History History of COVID-19 (~2020) Depression Recovering alcoholic Breast cancer, right (~2018) Arthritis Diabetes Cirrhosis IBS (irritable bowel syndrome) HLD (hyperlipidemia) Pancytopenia Restless leg syndrome Chronic GERD Hypothyroidism Degenerative disc disease Non-insulin dependent type 2 diabetes mellitus HTN (hypertension) Surgical History History of partial mastectomy of right breast (~2017) Hx of shoulder surgery (08/21/18) History of total right hip replacement History of tonsillectomy History of hysterectomy (1991) Hx of laminectomy (~2007) History of lumbosacral spine surgery (~2008) Social History household members: none Smoking Status: Current some day smoker alcohol intake: former Assessment & Plan Post-op Postoperative Procedures: Procedures Operation Date: 03/04/24 12:00 Actual Procedure Side Surgeon p Shoulder Removal of hardware reverse total shoulder arthroplasty with biceps tenodesis Left Chris Villa MD Postoperative day: 3 Postoperative status narrative: Status post removal of hardware, deep implant left proximal humerus, reverse total shoulder arthroplasty March 04, 2024 Acute hypoxic respiratory failure secondary to pulmonary edema, new and active, possible acute septic or metabolic encephalopathy, new and active, fever, new inactive, tobacco dependence and active smoker, present on admission and active. Liver cirrhosis and portal hypertension, present on admission active followed by hospitalist. Postoperative plan: routine post-op care Postoperative plan narrative: Sling to remain on for 6 weeks. No external rotation past neutral for 6 weeks. Okay for the sling to come off for shower. Okay to shower over the Aquacel dressing. If any water gets underneath the dressing, remove the dressing. First postoperative visit in 2 weeks. Per hospitalist continue to diurese, wean off O2, monitor mental status, echo which was performed yesterday. Patient lives alone and does not have assistance. Patient is currently a 1 person assist physical therapy is recommended senior care facility placement. Per care management patient would be Medicare ready? for discharge to senior care facility March 09, 2024. Quality VTE Deep Vein Thrombosis/Pulmonary Embolism Present on Admission: No
[2024-03-07] MEDS: AMLODIPINE 5 MG TABLET PO (09:27)
[2024-03-07] MEDS: GABAPENTIN 300 MG CAPSULE PO ×3 (09:27→22:10)
[2024-03-07] MEDS: MELOXICAM 7.5 MG TABLET 15 MG PO (09:27)
[2024-03-07] MEDS: BUSPIRONE 5 MG TABLET 15 MG PO ×3 (09:27→22:10)
[2024-03-07] MEDS: polyethylene glycoL 3350 17 GM POWD.PACK PO (09:27)
[2024-03-07] MEDS: DOCUSATE 100 MG CAPSULE PO ×2 (09:27→22:10)
[2024-03-07] MEDS: methocarbamoL 500 MG TABLET 750 MG PO ×3 (09:27→22:11)
[2024-03-07] MEDS: ASPIRIN EC 81 MG TABLET PO ×2 (09:27→22:10)
--- NOTE | 2024-03-07 09:46 | DI.CT.S_ITS ---
PROCEDURE: CT HEAD/BRAIN WO CON INDICATIONS: Confusion and speech issues TECHNIQUE: Noncontrast 4.5 mm thick angled axial sections acquired from the foramen magnum to the vertex, with coronal and sagittal reformats. For radiation dose reduction, the following was used: automated exposure control, adjustment of mA and/or kV according to patient size. COMPARISON: [facility], CT, CT HEAD WITHOUT CONTRAST, 04/27/2020, 2:10. FINDINGS: Image quality: Diagnostic. CSF spaces: Basal cisterns are patent. No extra-axial fluid collections. The ventricles are symmetric in size and shape. Brain: No intracranial bleeds or masses. There is cerebral volume loss for age, with resultant ventricular and sulcal prominence. There are periventricular and deep white matter chronic small vessel ischemic changes. There is intracranial internal carotid artery atherosclerosis. Skull and face: Calvarium and visualized facial bones appear intact, without suspicious lesions. Sinuses: Visualized sinuses and mastoids are clear. IMPRESSION: 1. CT head without acute intracranial abnormalities or acute calvarial fractures. 2. Age-related senescent changes and sequela of chronic small vessel ischemic disease. Dictated by: Alexander Freire M.D. on 03/07/2024 at 11:04 Approved by: Alexander Freire M.D. on 03/07/2024 at 11:08
--- NOTE | 2024-03-07 10:26 | CM.DPC ---
DCP Cont: Per MD, pt with maybe some slurred speech and confusion noted by RN earlier and imaging ordered to rule out any further medical needs. Per PT yesterday, recommending SNF at d/c before return home alone. SW met bedside with pt and explained role and provided the SNF Choice list and pt confirms she has hx of SNF but in [place] and not a local SNF. SW explained change from SDC to Inpt due to respiratory issues and need for 3 night qualifying stay for SNF to be covered and would be medically eligible to d/c to SNF by 03/09. Discussed need for plan A and plan B and pt reviewing SNF choice list and agreeable with [facility]errals to [facility], [facility], [facility], and [facility] but will discuss with her Dtr who lives in [place], her sister who lives in [facility], and her brother who lives outside of [place] for first SNF preference. Pt is hopeful to improve in the next 1-2 days that she might be able to d/c home alone, but with local family support, and HH. F2F previously completed and scanned in case pt can d/c with HH. PASRR completed in anticipation of SNF but would need MD signature. Radha Alvares, PHYSIOTHERAPIST'S ASSISTANT
[2024-03-07 11:20] LABS: Hematocrit 24.9 % (36-46); Mean Corpuscular HGB Conc 32.1 % (30-36); Mean Corpuscular Hemoglobin 26.9 PG (26-34); Mean Corpuscular Volume 83.7 fL (80-100); Platelet Count 113 X10^3/uL (150-400); Red Blood Cell Count 2.97 X10^6/uL (4.0-5.2); Red Cell Distribution Width 15.1 % (11.6-14.8); White Blood Cell Count 6.3 X10^3/uL (4.5-11.0)
[2024-03-07 11:33] LABS: Alanine Aminotransferase 30 IU/L (<35); Albumin 3.6 g/dL (3.5-5.0); Albumin Globulin Ratio 1.2 (1.0-2.8); Alkaline Phosphatase 59 U/L (38-126); Aspartate Aminotransferase 42 IU/L (14-36); BUN Creatinine Ratio 19.8 (6-22); Bilirubin Total 0.7 mg/dL (0.2-1.3); Blood Urea Nitrogen 21 mg/dL (7-17); Carbon Dioxide 29 mmol/L (22-32); Chloride 102 mmol/L (98-107); Estimated Glomerular Filt Rate 58 mL/min (>60); Glucose 148 mg/dL (80-110); HEMOLYSIS < 15 (0-50); Magnesium 2.2 mg/dL (1.6-2.3); Potassium 4.4 mmol/L (3.4-5.1); Sodium 137 mmol/L (137-145); Total Protein 6.6 g/dL (6.3-8.2)
[2024-03-07 11:44] LABS: Troponin I < 0.012 ng/mL (0.01-0.034)
[2024-03-07] MEDS: INSULIN LISPRO 100 UNIT/ML 3ML VIAL SUBCUT ×2 (11:48→17:21)
--- NOTE | 2024-03-07 11:59 | PT.IPTN ---
Current Diagnoses Primary osteoarthritis, left shoulder (03/04/24) Pain due to internal orthopedic prosthetic devices, implants and grafts, initial encounter (03/04/24) Surgery Performed Operation Date: 03/04/24 12:00 Actual Procedures p Shoulder Removal of hardware reverse total shoulder arthroplasty with biceps tenodesis(Left) - Chris Vilal MD Physical Therapy Treatment Note M2 PT-IP Current Condition Start: 03/05/24 12:56 Freq: NEEDED Status: Active Protocol: Document 03/05/24 10:40 AB (Rec: 03/05/24 13:14 AB [id number]) Physical Therapy Current Condition Current Condition Evaluation Date 03/05/24 Treatment Diagnosis s/p L TSA reverse; difficulty in walking Onset Date 03/04/24 M3 PT-IP Subjective Start: 03/05/24 12:56 Freq: NEEDED Status: Active Protocol: Document 03/07/24 11:42 KS (Rec: 03/07/24 12:53 KS [id number]) Subjective Physical Therapy Visit Type Type Treatment Note Visit Start Time 11:42 Visit Stop Time 11:59 Notes dtr present Number of [employer] Visits 1 Physical Therapy Visit Comments Patient Comments agreeable to do PT M4 PT-IP Mobility and Gait Start: 03/05/24 12:56 Freq: NEEDED Status: Active Protocol: Document 03/07/24 11:42 KS (Rec: 03/07/24 12:53 KS [id number]) PT-Transfer Assessment Sit to and From Stand Sit to and from Stand Minimal Assistance,1 Person Assistance,Use of Upper Extremities Equipment Transfer Assistive Device None,Gait Belt Orthotic/Prosthetic Devices or Brace: Yes Transfers Transfer Destination Chair Transfer Technique ambulated Transfer Ability Level of Assist Minimal Assistance,1 Person Assistance,Use of Upper Extremities Comments Mobility Comments Pt in chair upon arrival w. sling on. Practiced hand and wrist ROM. Pt seems confused and has difficulty w/ word finding as well as randomly chanes subject/unrevelent discussion. O2 95-98% on 3L throughout treatment. Dtr confirms pt not in her normal state however CT scan negative . Pt Freddie for sit<>stand w/ FWW, she feels off-kilter when standing but agreeable to ambulation. She ambulated ~25 ft but demonstrated shuffling gait and 1 x LOB before returning to chair. Left in chair w/ all needs in reach and dtr in room. Gait Assessment Gait Gait Assistance Required: Minimum Assistance Distance (Feet) 25 Able to Maintain Weight Bearing Status Yes During Gait Assistive Devices Assistive Device None,Gait Belt Orthotic/Prosthetic Devices or Brace: Yes Gait Deviations General Gait Pattern Antalgic,Ataxic,Decreased Stride Length,Decreased Feet Clearance Factors Limiting Gait Function Factors Limiting Gait Function Decreased Activity Tolerance, Decreased Strength,Difficulty Following Directions,Limited Range of Motion,Pain,Poor Balance,Poor Safety Awareness, Respiratory Distress PT-Balance Assessment Sitting Balance and Reactions Static Sitting Balance Ability Normal Dynamic Sitting Balance Ability Good Standing Balance and Reactions Static Standing Balance Ability Fair Dynamic Standing Balance Ability Fair M5 PT-IP Objective Assessments Start: 03/05/24 12:56 Freq: NEEDED Status: Active Protocol: Document 03/05/24 10:40 AB (Rec: 03/05/24 13:14 AB [id number]) Orientation Orientation/Cognition Level of Alertness Confusional State Orientation Name,Place,Situation Language Function Ability No Deficits Noted Safety Awareness Decreased Safety Awareness Memory Description Short Term Impaired Gross Range of Motion Lower Extremity ROM Assessment Within Functional Limits Strength Lower Extremity Strength Assessment Within Functional Limits Muscle Tone Muscle Tone WNL Yes M6 PT-IP Treatment Start: 03/05/24 12:56 Freq: NEEDED Status: Active Protocol: Document 03/07/24 11:42 KS (Rec: 03/07/24 12:53 KS [id number]) Physical Therapy Treatment Exercises Exercises Elbow Flexion/Extension,Wrist ROM,Hand ROM Education Education Provided Precautions,Weight Bearing Status,Safety M7 PT-IP Assessment and Plan Start: 03/05/24 12:56 Freq: NEEDED Status: Active Protocol: Document 03/07/24 11:42 KS (Rec: 03/07/24 12:53 KS [id number]) PT Summary Assessment and Plan Potential Rehabilitation Potential Fair Summary Impairments Pain,ROM,Strength,Balance, Coordination,Sensation,Tone, Cognition,Bed Mobility, Transfers,Gait,Activity Tolerance Progress Towards Goals Slow Progress due to Medical Issues Assessment Summary PT requires Min A, but does have LOB when ambulating this date and demonstrats shuffling gait which increases risk of falls. She is still on 3 L o2 and maintaining oxygen in mi to high 90s during mobility. Pt will require SNF to improve strength and functional mobility. Goals Bed Mobility Goal Standby Assistance Transfer Goal Independent Gait Goal Independent Gait Distance 300 Days to Meet Goals 5 Frequency of Treatment Frequency Of Treatment Once a Day Treatment Plan Physical Therapy Treatment Plan Bed Mobility Training,Transfer Training,Gait Training, Therapeutic Exercise,Balance Retraining,Post Op Education, Discharge Planning,Hot or Cold Pack,Neuromuscular Re-ed, Coordination Retraining,Manual Therapy Precautions Shoulder Precautions Sling,PROM,Internal Rotation to Body,No External Rotation, No Abduction,Forward Flexion to 90 degrees,Pendulums Weight Bearing Status Weight Bearing Status Non-Weight Bearing Allowed Weight Bearing Amount (enter % LUE NWB or #) (%) Recommendations To Nursing Amount of Assist Needed 1 Person Assist Discharge Recommendations PT Discharge Recommendations SNF Rehab Transportation Needs at Discharge Private Vehicle,Wheelchair/ Cabulance
--- NOTE | 2024-03-07 13:11 | P.PN_ITS ---
Subjective Subjective Interval history: Little more confused today, some delirium overnight. No chest pain, on some oxygen at 2 L. No cough. Her shoulder pain is generally well controlled. Exam Vital Signs (past 8 hours): - 03/08/24 08:00 03/08/24 12:00 Temperature 98.3 F 97.3 F L Pulse Rate 90 87 Respiratory Rate 18 16 Blood Pressure 138/73 139/70 Pulse Oximetry 92 94 Oxygen Flow Rate 2 2 Oxygen Delivery Method Nasal Cannula Oxygen Flow Rate 2 Narrative Exam Narrative: NAD, alert and oriented. Fluent speech. Lungs are clear, normal rate and effort. Heart is regular, no murmur gallop or rub. Abdomen is soft, non distended. Extremities are free of edema. Left shoulder immobilizer. Objective Labs 03/07/24 11:10 03/07/24 11:10 Labs: Laboratory Results - last 24 hr 03/07/24 21:10 Urine Color Yellow Urine Appearance Clear Urine pH 6.0 Ur Specific [place] 1.020 Urine Protein 1+ H Urine Glucose (UA) Negative Urine Ketones Negative Urine Occult Blood Negative Urine Nitrate Negative Urine Bilirubin Negative Urine Urobilinogen >=8.0 Ur Leukocyte Esterase Negative Urine RBC None seen Urine WBC 0-1/hpf Ur Squamous Epith Cells 1-5 /hpf Calcium Oxalate Crystal Occasional H Urine Bacteria None seen Urine Yeast 1-5/hpf H Ur Culture Indicated? Cult not indicated Vol Urine Centrifuged 10ml (spun) [facility] Medical History History of COVID-19 (~2020) Depression Recovering alcoholic Breast cancer, right (~2017) Arthritis Diabetes Cirrhosis IBS (irritable bowel syndrome) HLD (hyperlipidemia) Pancytopenia Restless leg syndrome Chronic GERD Hypothyroidism Degenerative disc disease Non-insulin dependent type 2 diabetes mellitus HTN (hypertension) Surgical History History of partial mastectomy of right breast (~2017) Hx of shoulder surgery (08/21/18) History of total right hip replacement History of tonsillectomy History of hysterectomy (1991) Hx of laminectomy (~2007) History of lumbosacral spine surgery (~2008) Social History household members: none Smoking Status: Current some day smoker alcohol intake: former Assessment & Plan Assessment & Plan narrative: 1. Acute hypoxic respiratory failure secondary to pulmonary edema, new and improved. 2. Possible acute septic or metabolic encephalopathy, new and active. 3. Fever, new and active. 4. Tobacco dependence and active smoker, present on admission and active. 5. Liver cirrhosis and portal hypertension, present on admission and active. 6. Acute metabolic encephalopathy, new and improving. Plan: -wean oxygen as able. -echo reviewed as grossly normal. -monitor mental status. -minimize sedative medications and analgesics. Time-Based Coding :: 20 min spent with patient and on the chart (including review of chart, obtaining history, exam, reviewing outside data, placing orders, documenting exam and treatment plan, and counseling patient) on 03/07. Quality VTE Deep Vein Thrombosis/Pulmonary Embolism Present on Admission: No
[2024-03-07 13:17] VITALS: O2SAT 94
[2024-03-07 14:00] VITALS: BP 113/59; PULSE 87; RESP 18; TEMP 36.8; O2SAT 95
--- NOTE | 2024-03-07 19:55 | PC.NURSE ---
~900 pt having trouble finding words- able to follow commands and move extremities- informed Dr Diaz and CT and telemetry ordered. 1230 pt still having trouble with words and seems confused. head CT was negative. 1800 talked to MD about cont. confusion- if mentation does not clear in am he will order MRI- thinks it is metabolic and related to surgery and medications
[2024-03-07 21:55] VITALS: BP 141/68; PULSE 101; RESP 18; TEMP 38.7; O2SAT 94
[2024-03-07] MEDS: ATORVASTATIN 20 MG TABLET PO (22:10)
[2024-03-07] MEDS: buPROPion XL 150 MG TAB 300 MG PO (22:10)
[2024-03-07] MEDS: TRAZODONE 50 MG TABLET 100 MG PO (22:11)
[2024-03-07] MEDS: DULOXETINE 30 MG CAPSULE 90 MG PO (22:11)
[2024-03-08 01:15] VITALS: BP 146/70; PULSE 97; RESP 18; TEMP 37.3; O2SAT 92
[2024-03-08] MEDS: PIPERACILLIN/TAZO 3.375 GM in SODIUM CHLORIDE 0.9% 100 ML IV (04:32)
[2024-03-08 04:34] VITALS: BP 155/66; PULSE 93; RESP 18; TEMP 36.6; O2SAT 93
[2024-03-08 04:53] LABS: Appearance Urine UA CLEAR; Bilirubin Urine UA NEGATIVE (NEGATIVE); Color Urine UA YELLOW; Glucose Urine UA NEGATIVE (Negative); Ketones Urine UA NEGATIVE (NEGATIVE); Leukocyte Esterase Urine UA NEGATIVE (NEGATIVE); Nitrite Urine UA NEGATIVE (Negative); Occult Blood Urine UA NEGATIVE (Negative); Protein Urine UA 1+ (Negative); Urobilinogen Urine UA >=8.0 E.U./dL (0.2)
[2024-03-08 04:57] LABS: Urine Volume 10mL (spun)
[2024-03-08 04:58] LABS: Bacteria Urine None Seen; Calcium Oxalate Crystals Urine Occasional; RBC Urine None Seen (0-5/HPF); Squamous Epithelial Cell Urine 1-5 /HPF (0-5/HPF); WBC Urine 0-1/HPF (0-5/HPF)
[2024-03-08 04:59] LABS: Culture Indicated Urine Cult Not Indicated
[2024-03-08] MEDS: PANTOPRAZOLE DR 20 MG TABLET PO (06:00)
[2024-03-08] MEDS: LEVOTHYROXINE 25 MCG TABLET PO (06:00)
--- NOTE | 2024-03-08 06:37 | P.PN_ITS ---
Subjective Subjective Date Patient Seen: 03/08/24 Time Patient Seen: 06:54 Interval history: Pt lying in bed, c/o severe HESTER, received oxycodone about 30 min ago. She answers questions appropriately: knows her name, , names current president and governor. However, she does ask me 'Am I in the hospital? What part?' When I tell her yes and ask her why she wonders about this, she says 'Because it seems like I'm just in a little house somewhere. Yesterday, they put us all in a van and we drove around.' She reports she is eating and voiding without difficulty. I took off her NC while we spoke and her O2 sats were 90-93. We discussed home w/ HH vs SNF, and she is open to going to rehab. I agree that this is the best idea. I do think she will need home O2 at discharge, and time at SNF can help get her dialed in for this. Also, her confusion is concerning; while I don't think further workup is necessary as an inpatient, I would like to see her consistently clearer prior to discharge to home since she lives alone. In review of pt chart: - It appears that her resp failure and O2 dependence are new. She had a CXR that showed signs consistent w/ pulmonary edema and was started on Zosyn d/t possible aspiration pneumonia. She had a CTA that was negative for PE. She is a smoker. - She had an echo on 03/06 that was grossly normal. - She had a CT of the head ordered yesterday d/t slurred speech; this showed chronic age-related changes but no acute findings. - UA was negative for UTI. - She has a h/o cirrhosis and portal hypertension. Recent AST mildly elevated at 42, ALT and alk phos WNL. Exam Vital Signs (past 8 hours): - 03/08/24 01:15 03/08/24 04:34 Temperature 99.2 F 97.8 F Pulse Rate 97 H 93 H Respiratory Rate 18 18 Blood Pressure 146/70 H 155/66 H Pulse Oximetry 92 93 Oxygen Flow Rate 3 3 Oxygen Delivery Method Nasal Cannula Oxygen Flow Rate 3 Narrative Exam Narrative: Well-placed sling on left. Pt able to wiggle fingers, mild swelling, sensation to touch intact throughout LUE, brisk capillary refill. Aquacel dressing CDI. Objective Labs 03/07/24 11:10 03/07/24 11:10 Labs: Laboratory Results - last 24 hr 03/07/24 03/07/24 11:10 21:10 WBC 6.3 RBC 2.97 L Hgb 8.0 L Hct 24.9 L MCV 83.7 MCH 26.9 MCHC 32.1 RDW 15.1 H Plt Count 113 L Sodium 137 Potassium 4.4 Chloride 102 Carbon Dioxide 29 BUN 21 H Creatinine 1.06 H Estimated GFR 58 L BUN/Creatinine Ratio 19.8 Glucose 148 H Calcium 9.0 Magnesium 2.2 Total Bilirubin 0.7 AST 42 H ALT 30 Alkaline Phosphatase 59 Troponin I < 0.012 Total Protein 6.6 Albumin 3.6 Globulin 3.0 Albumin/Globulin Ratio 1.2 Urine Color Yellow Urine Appearance Clear Urine pH 6.0 Ur Specific [place] 1.020 Urine Protein 1+ H Urine Glucose (UA) Negative Urine Ketones Negative Urine Occult Blood Negative Urine Nitrate Negative Urine Bilirubin Negative Urine Urobilinogen >=8.0 Ur Leukocyte Esterase Negative Urine RBC None seen Urine WBC 0-1/hpf Ur Squamous Epith Cells 1-5 /hpf Calcium Oxalate Crystal Occasional H Urine Bacteria None seen Urine Yeast 1-5/hpf H Ur Culture Indicated? Cult not indicated Vol Urine Centrifuged 10ml (spun) [facility] Medical History History of COVID-19 (~2020) Depression Recovering alcoholic Breast cancer, right (~2017) Arthritis Diabetes Cirrhosis IBS (irritable bowel syndrome) HLD (hyperlipidemia) Pancytopenia Restless leg syndrome Chronic GERD Hypothyroidism Degenerative disc disease Non-insulin dependent type 2 diabetes mellitus HTN (hypertension) Surgical History History of partial mastectomy of right breast (~2017) Hx of shoulder surgery (08/21/18) History of total right hip replacement History of tonsillectomy History of hysterectomy (1991) Hx of laminectomy (~2007) History of lumbosacral spine surgery (~2008) Social History household members: none Smoking Status: Current some day smoker alcohol intake: former Assessment & Plan Post-op Assessment and plan (1) Status post total shoulder arthroplasty: Assessment and Plan narrative: 1) Her IV is currently out. I advised nursing to discuss need for continued abx w/ hospitalist; if these are not needed and she does not require IV access for anything else, IV can be discontinued. 2) Will ask RT to set her up w/ home O2 for discharge. 3) Per note, she will be ready for SNF from an insurance standpoint tomorrow. Will need PASSR signed by our service. 4) Appreciate hospitalist help with this patient. I am doing to d/c her Tylenol in light of cirrhosis hx and d/c her dilaudid d/t confusion; it doesn't appear that she has been receiving them, anyway. Further medication changes for discharge per hospitalist service. Postoperative Procedures: Procedures Operation Date: 03/04/24 12:00 Actual Procedure Side Surgeon p Shoulder Removal of hardware reverse total shoulder arthroplasty with biceps tenodesis Left Chris Villa MD Postoperative day: 4 Quality VTE Deep Vein Thrombosis/Pulmonary Embolism Present on Admission: No
[2024-03-08 08:00] VITALS: BP 138/73; PULSE 90; RESP 18; TEMP 36.8; O2SAT 92
--- NOTE | 2024-03-08 08:04 | PC.NURSE ---
Addendum entered by Rhonda Tinajero R.N. 03/08/24 11:29: Patient progressive care nurse states that patient is groggy and not making sense when she talks, She was given a muscle relaxer. Will monitor behaviors in an hour. Original Note: Patient yelling out loud for staff, explained to patient that she should use her callbell as peopel are trying to sleep. She states that this RN is being mean to her and all she wanted was her water moved closer to her. Patient is sleeping now. She is refusing that another iv be started on her as she has pulled two of them out back to back. Ila Adam is aware of this and that she will not be getting her iv antibiotics at this time. Blood sugar this morning is 110 and no insulin needed at this time. Patient is coherent at times and then yells out and acts completely confused. She has a sling in place and immobilizer on her l.arm. Patient is getting ready for breakfast soon.
[2024-03-08] MEDS: ASPIRIN EC 81 MG TABLET PO ×2 (09:05→21:05)
[2024-03-08] MEDS: polyethylene glycoL 3350 17 GM POWD.PACK PO (09:05)
[2024-03-08] MEDS: BUSPIRONE 5 MG TABLET 15 MG PO ×3 (09:06→21:06)
[2024-03-08] MEDS: DOCUSATE 100 MG CAPSULE PO ×2 (09:06→21:06)
[2024-03-08] MEDS: MELOXICAM 7.5 MG TABLET 15 MG PO (09:06)
[2024-03-08] MEDS: methocarbamoL 500 MG TABLET 750 MG PO (09:06)
[2024-03-08] MEDS: GABAPENTIN 300 MG CAPSULE PO ×3 (09:06→21:06)
[2024-03-08] MEDS: AMLODIPINE 5 MG TABLET PO (09:06)
[2024-03-08 12:00] VITALS: BP 139/70; PULSE 87; RESP 16; TEMP 36.3; O2SAT 94
--- NOTE | 2024-03-08 13:03 | PT.IPTN ---
Current Diagnoses Primary osteoarthritis, left shoulder (03/06/24) Pain due to internal orthopedic prosthetic devices, implants and grafts, initial encounter (03/06/24) Presence of unspecified artificial shoulder joint (03/06/24) Surgery Performed Operation Date: 03/04/24 12:00 Actual Procedures p Shoulder Removal of hardware reverse total shoulder arthroplasty with biceps tenodesis(Left) - Chris Villa MD Physical Therapy Treatment Note M2 PT-IP Current Condition Start: 03/05/24 12:56 Freq: NEEDED Status: Active Protocol: Document 03/05/24 10:40 AB (Rec: 03/05/24 13:14 AB [id number]) Physical Therapy Current Condition Current Condition Evaluation Date 03/05/24 Treatment Diagnosis s/p L TSA reverse; difficulty in walking Onset Date 03/04/24 M3 PT-IP Subjective Start: 03/05/24 12:56 Freq: NEEDED Status: Active Protocol: Document 03/08/24 12:20 MB (Rec: 03/08/24 13:02 MB [id number]) Subjective Physical Therapy Visit Type Type Treatment Note Visit Start Time 12:20 Visit Stop Time 12:43 Notes In MD venkata asks about checking O2 sats with mobility /checking for OT needs with mobility Number of DIRECTOR PROCESS Visits 0 Physical Therapy Visit Comments Patient Comments Pt is agreeable to PT. Therapy Pain Assessment Pain When Pain Assessed At Rest Pain Present Pain Present Denied Pain M4 PT-IP Mobility and Gait Start: 03/05/24 12:56 Freq: NEEDED Status: Active Protocol: Document 03/08/24 12:20 MB (Rec: 03/08/24 13:02 MB [id number]) PT-Bed Mobility Assessment Supine to Sit Supine to Sit Standby Assistance,1 Person Assistance,Bedrails Scooting Scooting to Edge of Bed Standby Assistance PT-Transfer Assessment Sit to and From Stand Sit to and from Stand Contact Guard Assistance,1 Person Assistance,Use of Upper Extremities Equipment Transfer Assistive Device None Orthotic/Prosthetic Devices or Brace: Yes Transfers Transfer Destination Chair Transfer Technique Ambulated Transfer Ability Level of Assist Contact Guard Assistance,1 Person Assistance,Use of Upper Extremities Comments Mobility Comments Pt with some unsteadiness upon standing. Pt is on 2L O2 in supine upon arrival and O2 sats are 97%. PT doffs O2 and checks throughout mobility with transfers, gait and once up in chair and sats are 91-94 % and HR around 99 BPM and no MINER with activity. Left pt with O2 off and cleared with radha and and gown alarm on pt. Gait Assessment Gait Gait Assistance Required: Contact Guard Assist Distance (Feet) 100 Able to Maintain Weight Bearing Status Yes During Gait Assistive Devices Assistive Device None Orthotic/Prosthetic Devices or Brace: Yes Gait Deviations General Gait Pattern Decreased Stride Length, Decreased Feet Clearance,Step- to Gait,Wide Based Gait Factors Limiting Gait Function Factors Limiting Gait Function Decreased Activity Tolerance, Decreased Strength, Incoordination,Poor Balance, Poor Safety Awareness Comments Gait Comments Pt with functional leg length difference and right leg is longer and so more stance time on it and pt states that she has lift shoe for left foot at home PT-Balance Assessment Sitting Balance and Reactions Static Sitting Balance Ability Normal Dynamic Sitting Balance Ability Good Standing Balance and Reactions Static Standing Balance Ability Fair Dynamic Standing Balance Ability Fair Device Used None M5 PT-IP Objective Assessments Start: 03/05/24 12:56 Freq: NEEDED Status: Active Protocol: Document 03/05/24 10:40 AB (Rec: 03/05/24 13:14 AB [id number]) Orientation Orientation/Cognition Level of Alertness Confusional State Orientation Name,Place,Situation Language Function Ability No Deficits Noted Safety Awareness Decreased Safety Awareness Memory Description Short Term Impaired Gross Range of Motion Lower Extremity ROM Assessment Within Functional Limits Strength Lower Extremity Strength Assessment Within Functional Limits Muscle Tone Muscle Tone WNL Yes M6 PT-IP Treatment Start: 03/05/24 12:56 Freq: NEEDED Status: Active Protocol: Document 03/08/24 12:20 MB (Rec: 03/08/24 13:02 MB [id number]) Physical Therapy Treatment Education Education Provided Precautions,Safety M7 PT-IP Assessment and Plan Start: 03/05/24 12:56 Freq: NEEDED Status: Active Protocol: Document 03/08/24 12:20 MB (Rec: 03/08/24 13:02 MB [id number]) PT Summary Assessment and Plan Potential Rehabilitation Potential Good Status of Condition at Evaluation Evolving Summary Impairments Pain,ROM,Strength,Balance, Coordination,Cognition,Bed Mobility,Transfers,Gait, Activity Tolerance Progress Towards Goals Slow Progress - Other Assessment Summary O2 sats are normal on RA today . Pt with some cognitive challenges/slow processing. She has a leg length difference and does not have left lift shoe and this likely affects balance with gait. Recommend SNF at d/c. Pt manages toileting with superv today. Goals Bed Mobility Goal Independent Transfer Goal Independent Gait Goal Independent Gait Distance 200 Days to Meet Goals 3 Frequency of Treatment Frequency Of Treatment Once a Day Treatment Plan Physical Therapy Treatment Plan Bed Mobility Training,Transfer Training,Gait Training, Therapeutic Exercise,Balance Retraining,Post Op Education, Discharge Planning,Hot or Cold Pack,Neuromuscular Re-ed, Coordination Retraining,Manual Therapy Precautions Other Precautions Sling for 6 weeks, no ER past neutral for 6 weeks, sling off for showers Weight Bearing Status Weight Bearing Status Non-Weight Bearing Allowed Weight Bearing Amount (enter % LUE NWB or #) (%) Recommendations To Nursing Amount of Assist Needed 1 Person Assist Discharge Recommendations PT Discharge Recommendations SNF Rehab Transportation Needs at Discharge Private Vehicle,Wheelchair/ Cabulance
--- NOTE | 2024-03-08 13:09 | CM.DPC ---
DCP Cont. Reviewed EMR and team rounds for status updates. Pt will d/c tomorrow to [facility]. This [employer] AGENT will call in the am and confirm transport time. PASSAR is with the facesheet.
--- NOTE | 2024-03-08 13:16 | PM.PN.1 ---
Subjective Subjective Interval history: More mentally clear today. Good pain control. Tylenol and pain medications have been stopped. The plan is for residential facility, she agrees. She was able to wean off from oxygen with physical therapy today and maintain sats over 90% while ambulating. Exam Vital Signs (past 8 hours): - 03/08/24 08:00 03/08/24 12:00 Temperature 98.3 F 97.3 F L Pulse Rate 90 87 Respiratory Rate 18 16 Blood Pressure 138/73 139/70 Pulse Oximetry 92 94 Oxygen Flow Rate 2 2 Oxygen Delivery Method Nasal Cannula Oxygen Flow Rate 2 Narrative Exam Narrative: NAD, alert and oriented. Fluent speech. Normal content of speech, oriented. Lungs are clear, normal rate and effort. Heart is regular, no murmur gallop or rub. Abdomen is soft, non distended. Extremities are free of edema. Left shoulder immobilizer. Objective Imaging Echo: Radiologist's impression: Normal sinus rhythm. Normal LV size, wall thickness, wall motion and LV systolic function. EF is 55-60%. Normal chamber sizes. Aortic sclerosis without stenosis. No evidence of pulmonary hypertension. No prior study available for comparison. CT scan - head: Radiologist's impression: . CT head without acute intracranial abnormalities or acute calvarial fractures. 2. Age-related senescent changes and sequela of chronic small vessel ischemic disease. Labs 03/07/24 11:10 03/07/24 11:10 Labs: Laboratory Results - last 24 hr 03/07/24 21:10 Urine Color Yellow Urine Appearance Clear Urine pH 6.0 Ur Specific [place] 1.020 Urine Protein 1+ H Urine Glucose (UA) Negative Urine Ketones Negative Urine Occult Blood Negative Urine Nitrate Negative Urine Bilirubin Negative Urine Urobilinogen >=8.0 Ur Leukocyte Esterase Negative Urine RBC None seen Urine WBC 0-1/hpf Ur Squamous Epith Cells 1-5 /hpf Calcium Oxalate Crystal Occasional H Urine Bacteria None seen Urine Yeast 1-5/hpf H Ur Culture Indicated? Cult not indicated Vol Urine Centrifuged 10ml (spun) [facility] Medical History History of COVID-19 (~2020) Depression Recovering alcoholic Breast cancer, right (~2018) Arthritis Diabetes Cirrhosis IBS (irritable bowel syndrome) HLD (hyperlipidemia) Pancytopenia Restless leg syndrome Chronic GERD Hypothyroidism Degenerative disc disease Non-insulin dependent type 2 diabetes mellitus HTN (hypertension) Surgical History History of partial mastectomy of right breast (~2017) Hx of shoulder surgery (08/21/18) History of total right hip replacement History of tonsillectomy History of hysterectomy (1991) Hx of laminectomy (~2007) History of lumbosacral spine surgery (~2008) Social History household members: none Smoking Status: Current some day smoker alcohol intake: former Assessment & Plan Assessment & Plan narrative: 1. Acute hypoxic respiratory failure secondary to pulmonary edema, new and active. 2. Acute metabolic encephalopathy, new and active. 3. Fever, new and active. 4. Tobacco dependence and active smoker, present on admission and active. 5. Liver cirrhosis and portal hypertension, present on admission and active. Plan: -02 weaned off -short course of antibiotics, we will stop on March 09. Possible pneumonia, somewhat unclear. -avoid opiates and Tylenol. -residential facility, Orthopedics will discharge on March 09. Time-Based Coding :: 20 min spent with patient and on the chart (including review of chart, obtaining history, exam, reviewing outside data, placing orders, documenting exam and treatment plan, and counseling patient) on 03/08. Quality VTE Deep Vein Thrombosis/Pulmonary Embolism Present on Admission: No
--- NOTE | 2024-03-08 13:19 | PC.NURSE ---
Patient not making sense this morning, talking about a cat that was not in the room. She gets easily agitated with staff is something doesnt go her way fast. Patient was yelling loudly in her room this morning and not using her call cardenas. Explained to her that others are sleeping and its better to use the cardenas for needs. She was given her medication and this helped her sleep for a couple of hours. Patient worked with physical therapy and ambulated in the halls. She is back in her room and comfortable at this time.
--- NOTE | 2024-03-08 13:52 | OT.IP.TRT ---
Current Diagnoses Primary osteoarthritis, left shoulder (03/06/24) Pain due to internal orthopedic prosthetic devices, implants and grafts, initial encounter (03/06/24) Presence of unspecified artificial shoulder joint (03/06/24) Surgery Performed Operation Date: 03/04/24 12:00 Actual Procedures p Shoulder Removal of hardware reverse total shoulder arthroplasty with biceps tenodesis(Left) - Chris Villa MD Occupational Therapy Treatment Note M2 OT-IP Current Condition Start: 03/05/24 10:39 Freq: Status: Active Protocol: Document 03/05/24 10:39 [facility] (Rec: 03/05/24 10:53 [facility] [id number]) Occupational Therapy Current Condition Current Condition Evaluation Date 03/05/24 Treatment Diagnosis S/P L shoulder removal of hardware reverse TSA with biceps tenodesis Diagnosis Onset Date 03/04/24 Post Operative Precautions Shoulder Precautions Sling,No External Rotation Other Precautions Ok to take sling off for showers. Weight Bearing Status Weight Bearing Status Non-Weight Bearing M3 OT- IP Subjective and Pain Start: 03/05/24 10:39 Freq: Status: Active Protocol: Document 03/08/24 14:05 [facility] (Rec: 03/08/24 14:18 [facility] [id number]) OT- Subjective Occupational Therapy Visit Type Type Treatment Note Visit Start Time 13:34 Visit Stop Time 13:52 Notes Pt just returned to bed with nursing. Nursing still in room when OT entered. Pt agreeable to cog assessment supine in bed. M4 OT- IP ADL's Start: 03/05/24 10:39 Freq: Status: Active Protocol: Document 03/05/24 10:39 [facility] (Rec: 03/05/24 10:53 [facility] [id number]) OT MAU-Anwd-Iomvvlw Comments OT Self-Feeding Comments Not at meal time. Pt will need asisst with set-up due to just able to use right hand. OT ADL-Grooming Comments OT Grooming Comments Pt will need assist for set-up . OT ADL-Oral Care Comments Oral Care Comments Not performed. OT ADL-Dressing General Eval Upper Body Dressing Ability Maximum Assistance Lower Body Dressing Ability Maximum Assistance Areas Needing Assistance Socks Comments OT Dressing Comments MAX A for all sling management needs at this time. Pt attempted to try on her own and not able to do so and will need assist. OT ADL-Toileting General Evaluation Toileting Ability Standby Assistance Comments OT Toileting Comments Suggested pt get a BSC. Pt has a counter on the left side. OT ADL-Bathing Comments OT Bathing Comments Suggested to get a showre chair, HHSP and have assist from her family. M5 OT- IP IADL's Start: 03/05/24 10:39 Freq: Status: Active Protocol: Document 03/05/24 10:39 [facility] (Rec: 03/05/24 10:53 [facility] [id number]) OT-Instrumental Activities of Daily Living Deficits IADL Deficits Identified Deficits Home Safety Awareness Home Safety Comments Pt a little groogy and forgetful and would be best for someone to stay with pt initially at home. M6 OT- IP Functional Cognition Start: 03/05/24 10:39 Freq: Status: Active Protocol: Document 03/08/24 14:05 [facility] (Rec: 03/08/24 14:18 [facility] [id number]) Cognitive Factors Limiting Selfcare Function Cognitive Ability Level of Alertness Alert Patient Orientation Name,Age,Birthday,Month,Date, Year,Day of Week,Place, Situation Attention Span Ability Capable of Focused Attention, Capable of Sustained Attention Ability to Follow Commands Able to Follow One Step Commands with Increased Time, Able to Follow One Step Commands with Repetition Cognitive Tests SLUMS Pt scored a 23/30 putting her into the mild neurocognitive disorder. Pt only stated 12 animals in one minute, remembered 2/5 items, states numbers backwards for a set of 3 but not 4 numbers, and missed one question on the listening comprehension questions. Please see chart for hard copy while pt is still hospitalized. Hard copy will be scanned into chart upon discharge. M7 OT- IP Mobility and Balance Start: 03/05/24 10:39 Freq: Status: Active Protocol: Document 03/05/24 10:39 [facility] (Rec: 03/05/24 10:53 [facility] [id number]) OT- Bed Mobility Assessment Supine to Sit Supine to Sit Assist Standby Assistance Sit to Supine Sit to Supine Assist Standby Assistance Scooting Scooting to Edge of Bed Standby Assistance Scooting Up and Down in Bed Standby Assistance OT-Transfer Assessment Sit to and From Stand Sit to and from Stand Standby Assistance Transfers Transfer Ability Standby Assistance,Contact Guard Assistance Technique Transfer Destination Bed,Toilet Transfer Technique Stand Step Pivot Comments Mobility Comments Pt able to get out of bed with SBA and walk in the room with close SBA to CGA at this time . Pt states to sleep in a recliner at home. OT- Balance Assessment Sitting Balance and Reactions Static Sitting Balance Ability Good Dynamic Sitting Balance Ability Fair Standing Balance and Reactions Static Standing Balance Ability Fair Dynamic Standing Balance Ability Fair M8 OT- IP Objective Assessments Start: 03/05/24 10:39 Freq: Status: Active Protocol: Document 03/05/24 10:39 [facility] (Rec: 03/05/24 10:53 [facility] [id number]) OT Gross Range of Motion Upper Extremity Range of Motion Assessment Left Impaired OT Strength Upper Extremity Strength Assessment Left Impaired M9 OT- IP Assessment and Plan Start: 03/05/24 10:39 Freq: Status: Active Protocol: Document 03/08/24 14:05 [facility] (Rec: 03/08/24 14:18 [facility] [id number]) OT Summary Assessment and Plan Potential Rehabilitation Potential Good Analytic Complexity at Evaluation Low Summary OT Impairments Pain,Range of Motion,Strength, Balance,Functional Cognition, Functional Mobility,Self- Feeding,Grooming,Dressing, Toileting,Bathing,Toilet Transfers,Shower Transfers Progress Towards Goals Progressing Toward Goals Assessment Summary Pt participated in cog assessment on this date with a score of 23/30. See above for further information. No out of bed activity. Will continue to recommend SNF. Goals Self-Feeding Goal Independent Grooming Goal Independent Dressing Goal Minimal Assistance Toileting Goal Independent Bathing Goal Minimal Assistance Toilet Transfer Goal Independent Shower Transfer Goal Contact Guard Assistance Days to Meet Goals 5 Frequency of Treatment Other frequency 5x/week Treatment Plan OT Treatment Plan ADL Training,Functional Mobility,Patient/Family Education,Discharge Planning Discharge Recommendations OT Discharge Recommendations Home with 10/02 Assist Available,Home Health Home Equipment Needs BSC, shower chair, supervisor tellers Transportation Needs at Discharge Private Vehicle
[2024-03-08 16:00] VITALS: BP 143/73; PULSE 90; RESP 14; TEMP 36.6; O2SAT 96
[2024-03-08] MEDS: methocarbamoL 500 MG TABLET 250 MG PO ×2 (17:29→21:07)
[2024-03-08 19:36] VITALS: BP 145/65; PULSE 87; RESP 18; TEMP 36.8; O2SAT 94
[2024-03-08] MEDS: buPROPion XL 150 MG TAB 300 MG PO (21:05)
[2024-03-08] MEDS: ATORVASTATIN 20 MG TABLET PO (21:05)
[2024-03-08] MEDS: DULOXETINE 30 MG CAPSULE 90 MG PO (21:06)
[2024-03-08] MEDS: TRAZODONE 50 MG TABLET 100 MG PO (21:07)
[2024-03-09] MEDS: LEVOTHYROXINE 25 MCG TABLET PO (05:27)
[2024-03-09] MEDS: PANTOPRAZOLE DR 20 MG TABLET PO (05:27)
[2024-03-09 08:00] VITALS: BP 150/79; PULSE 75; RESP 19; TEMP 36.1; O2SAT 98
[2024-03-09] MEDS: MELOXICAM 7.5 MG TABLET 15 MG PO (09:32)
[2024-03-09] MEDS: DOCUSATE 100 MG CAPSULE PO (09:32)
[2024-03-09] MEDS: BUSPIRONE 5 MG TABLET 15 MG PO (09:33)
[2024-03-09] MEDS: AMLODIPINE 5 MG TABLET PO (09:33)
[2024-03-09] MEDS: GABAPENTIN 300 MG CAPSULE PO (09:33)
[2024-03-09] MEDS: methocarbamoL 500 MG TABLET 250 MG PO (09:33)
[2024-03-09] MEDS: ASPIRIN EC 81 MG TABLET PO (09:33)
--- NOTE | 2024-03-09 10:29 | PM.DS.1 ---
History of Present Illness History of Present Illness Date Patient Seen: 03/09/24 Time Patient Seen: 10:29 Chief complaint: Shoulder pain Narrative: Left shoulder pain is mild. Denies numbness tingling left upper extremity. No shortness of breath or chest pain. No fever chills. Otherwise without complaints Discharge Providers Provider Date of admission: 03/06/24 11:20 Discharge Date: 03/09/24 Primary care physician: RHIANNON Donaldson Consults: 03/04/24 06:00 Consult to Anesthesiology Routine Comment: Consulting Provider: Anesthesiologist Reason for consultation: Regional block for post operative pain control Has provider been notified: No 03/04/24 15:22 Consult to Discharge Planning Routine Comment: Consult to Occupational Therapy Evaluate & Treat Comment: Physician Instructions: Evaluate and treat Consult to Physical Therapy Evaluate & Treat Comment: Non-weight bearing to surgical extremity Physician Instructions: Evaluate and Treat 03/05/24 08:23 Consult to Physical Therapy Evaluate & Treat Comment: Physician Instructions: Fit ARC 2.0 Shoulder Immobilizer 03/05/24 10:45 Consult to Home Health Routine Comment: Reason For Exam: Home health services upon discharge 03/05/24 18:25 Consult to Hospitalist Service Routine Comment: Decreased sats Consulting Provider: Rosmery Baron Reason for consultation: Decreased sats Has provider been notified: Yes Discharge provider: Jaydon Alvarez PA-C Summary Hospital Course Discharge Diagnosis: Status post removal of hardware, deep implant, left proximal humerus, reverse total shoulder arthroplasty left. 1. Acute hypoxic respiratory failure secondary to pulmonary edema, new and active. 2. Acute metabolic encephalopathy, new and active. 3. Fever, new and active. 4. Tobacco dependence and active smoker, present on admission and active. 5. Liver cirrhosis and portal hypertension, present on admission and active. Hospital Course: Patient admitted for the above-mentioned procedure. Patient underwent removal of hardware, deep implant, left proximal humerus, left reverse total shoulder arthroplasty March 04, 2024. Hospitalist consultation for fever and confusion. Patient treated for acute hypoxic respiratory failure secondary to pulmonary edema, acute metabolic encephalopathy, fever, tobacco dependence, liver cirrhosis and portal hypertension. Patient has been weaned off oxygen. Patient was on short course of antibiotics which will be stopped today. Short course of antibiotics was for possible pneumonia however still somewhat unclear per hospitalist. Patient should avoid opiates and Tylenol. Patient will need senior living facility placement. Patient lives alone. Status at Discharge Cognitive/behavioral status at discharge: at baseline, oriented Functional status at discharge: independent ambulation Overall status at discharge: patient is progressing back to baseline Exam Vital Signs (past 8 hours): - 03/09/24 08:00 Temperature 97 F L Pulse Rate 75 Respiratory Rate 19 Blood Pressure 150/79 H Pulse Oximetry 98 Oxygen Delivery Method Room Air Oxygen Flow Rate 0 Narrative Exam Narrative: 61-year-old female resting comfortably in bed in no apparent distress. Left shoulder dressing is clean, dry and intact. Motor functions intact distal left upper extremity. Sling is in place. Const General: cooperative and comfortable Nutritional Appearance: average body habitus Orientation: alert Resp Effort & Inspection: normal respiratory effort and able to speak in complete sentences Objective Labs 03/07/24 11:10 03/07/24 11:10 [facility] Medical History History of COVID-19 (~2020) Depression Recovering alcoholic Breast cancer, right (~2017) Arthritis Diabetes Cirrhosis IBS (irritable bowel syndrome) HLD (hyperlipidemia) Pancytopenia Restless leg syndrome Chronic GERD Hypothyroidism Degenerative disc disease Non-insulin dependent type 2 diabetes mellitus HTN (hypertension) Surgical History History of partial mastectomy of right breast (~2017) Hx of shoulder surgery (08/21/18) History of total right hip replacement History of tonsillectomy History of hysterectomy (1991) Hx of laminectomy (~2007) History of lumbosacral spine surgery (~2008) Social History household members: none Smoking Status: Current some day smoker alcohol intake: former Discharge Assessment & Plan Assessment and Plan Assessment: Status post left shoulder reverse total arthoplasty Acute hypoxic respiratory failure secondary to pulmonary edema, acute metabolic encephalopathy, fever, tobacco dependence, liver cirrhosis and portal hypertension. Patient has weaned off oxygen. Short course of antibiotics while in hospital will be discontinued today. Avoid opiates and Tylenol. Plan of Treatment: No Tylenol or opiates Keep shoulder immobilized for the next 6 weeks. No external rotation past neutral for 6 weeks. Okay for sling to come off to shower. Okay to shower with Aquacel dressing in place. If water gets underneath the dressing okay to remove dressing. Initiate physical therapy within the next 10 days. Follow-up in clinic in 2 weeks for wound check. Discharge Plan Discharge Plan Patient Disposition: SNF Transfer to: [facility] Discharge orders & Medications Prescriptions: Continued metformin 500 mg Tablet 500 mg PO BID atorvastatin 20 mg Tablet 20 mg PO BEDTIME meloxicam 15 mg Tablet 15 mg PO DAILY naltrexone 50 mg Tablet 50 mg PO DAILY amlodipine 5 mg Tablet 5 mg PO DAILY levothyroxine 25 mcg Tablet 25 mcg PO DAILY methocarbamol 750 mg Tablet 750 mg PO TID trazodone 100 mg Tablet 100 mg PO BEDTIME omeprazole 20 mg Capsule,Delayed Release(Dr/Ec) 20 mg PO DAILY buspirone 15 mg Tablet 15 mg PO TID bupropion HCl 300 mg Tablet Extended Release 24 Hr 300 mg PO QAM duloxetine 30 mg Capsule,Delayed Release(Dr/Ec) 30 mg PO BEDTIME duloxetine 60 mg Capsule,Delayed Release(Dr/Ec) 60 mg PO BEDTIME gabapentin 300 mg Tablet Extended Release 24 Hr 300 mg PO TID Follow up/Referrals: Kell Jeff FNP-C [Primary Care Provider] - Chris Villa MD [Physician] - (Follow up as scheduled in 2 weeks at [facility].) Diet/Activity/Treatments Diet: Diet as Tolerated Activity: Remain in sling w/ no external rotation past neutral for 6 weeks. Cold/Heat Therapy: Ice to the shoulder for additional pain control Skin/Wound/Dressing Care Report to your healthcare provider any signs of infection, such as:: chills, fever, night sweats, unusual drainage and unusual redness Dressing: Keep dressing intact, clean and dry until 2 week post-op appointment. No soaking the incision site in pools or tubs. No topical ointments or creams to the incision site. Remain in sling with no external rotation [facility] Reason for rehabilitation: Post-operative therapy Rehab type: Physical therapy and Occupational therapy Visit Report/Discharge Packet Instructions: Heart Failure, DI for Shoulder Replacement Stand Alone Forms: Patient Portal/API, Surgery Discharge Discharge Data Primary Care Provider: Kell Jeff Quality VTE Deep Vein Thrombosis/Pulmonary Embolism Present on Admission: No
[2024-03-09 11:19] VITALS: O2SAT 98
--- NOTE | 2024-03-09 12:31 | CM.DPC ---
DCP Cont. Reviewed EMR and team rounds for status updates. Pt has been medically cleared for discharge, [facility] will transport her at 2:00pm, all d/c clinicals have been faxed. No further DCP needs identified at this time.
--- NOTE | 2024-03-09 13:24 | PC.NURSE ---
Addendum entered by Princess Toscano R.N. 03/09/24 14:27: Pt out via w/c by [facility] transport with family and all belongings. Original Note: Called report to Aileen GONZALEZ at [facility] and answered all questions. IV has been removed. Pt is ready to transfer to [facility] when transport arrives.
--- NOTE | 2024-03-09 14:02 | OT.IP.TRT ---
Current Diagnoses Primary osteoarthritis, left shoulder (03/06/24) Pain due to internal orthopedic prosthetic devices, implants and grafts, initial encounter (03/06/24) Presence of unspecified artificial shoulder joint (03/06/24) Surgery Performed Operation Date: 03/04/24 12:00 Actual Procedures p Shoulder Removal of hardware reverse total shoulder arthroplasty with biceps tenodesis(Left) - Chris Villa MD Occupational Therapy Treatment Note M2 OT-IP Current Condition Start: 03/05/24 10:39 Freq: Status: Active Protocol: Document 03/05/24 10:39 [facility] (Rec: 03/05/24 10:53 [facility] [id number]) Occupational Therapy Current Condition Current Condition Evaluation Date 03/05/24 Treatment Diagnosis S/P L shoulder removal of hardware reverse TSA with biceps tenodesis Diagnosis Onset Date 03/04/24 Post Operative Precautions Shoulder Precautions Sling,No External Rotation Other Precautions Ok to take sling off for showers. Weight Bearing Status Weight Bearing Status Non-Weight Bearing M3 OT- IP Subjective and Pain Start: 03/05/24 10:39 Freq: Status: Active Protocol: Document 03/09/24 14:04 [facility] (Rec: 03/09/24 14:10 [facility] [id number]) OT- Subjective Occupational Therapy Visit Type Type Treatment Note Visit Start Time 13:32 Visit Stop Time 14:02 Occupational Therapy Visit Comments Patient Comments Pt requesting to shower. Patient/Caregiver Goals TO go to skilled rehab. OT Pain Assessment Pain When Pain Assessed During Mobility Pain Present Pain Present Pain Reported Location left shoulder Pain Behaviors Holding Area M4 OT- IP ADL's Start: 03/05/24 10:39 Freq: Status: Active Protocol: Document 03/09/24 14:04 [facility] (Rec: 03/09/24 14:10 [facility] [id number]) OT ADL-Oral Care General Eval Oral Care Ability Independent Areas of Assistance Retrieving/Set-Up of Items OT ADL-Dressing General Eval Lower Body Dressing Ability Maximum Assistance Areas Needing Assistance Underpants/Brief,Shoes Comments OT Dressing Comments Pt's daughter able to assist pt for sling management needs. Pt needing assist to help davion clothing over her feet and up over her hips. Educated to lean forwards so able to get her RUE dressed first. OT ADL-Toileting General Evaluation Toileting Ability Standby Assistance OT ADL-Bathing Bathing Type Bathing Type Shower General Evaluation Bathing Ability Maximal Assistance Areas Needing Assistance Wash/Dry Upper Body,Wash/Dry Back,Wash/Dry Perineal Area, Wash/Dry Lower Extremities Comments OT Bathing Comments Pt able to sit for showering needs. Pt needing safety cues not to use her RUE and to just lean forwards so able to wash her arm pits. M5 OT- IP IADL's Start: 03/05/24 10:39 Freq: Status: Active Protocol: Document 03/05/24 10:39 [facility] (Rec: 03/05/24 10:53 [facility] [id number]) OT-Instrumental Activities of Daily Living Deficits IADL Deficits Identified Deficits Home Safety Awareness Home Safety Comments Pt a little groggy and forgetful and would be best for someone to stay with pt initially at home. M6 OT- IP Functional Cognition Start: 03/05/24 10:39 Freq: Status: Active Protocol: Document 03/09/24 14:04 [facility] (Rec: 03/09/24 14:10 [facility] [id number]) Cognitive Factors Limiting Selfcare Function Cognitive Comments Cognitive Assessment Comments Pt is a little forgetful and needing reminders not to use her RUE. M7 OT- IP Mobility and Balance Start: 03/05/24 10:39 Freq: Status: Active Protocol: Document 03/09/24 14:04 [facility] (Rec: 03/09/24 14:10 [facility] [id number]) OT- Bed Mobility Assessment Supine to Sit Supine to Sit Assist Standby Assistance OT-Transfer Assessment Sit to and From Stand Sit to and from Stand Standby Assistance Transfers Transfer Ability Standby Assistance,Contact Guard Assistance Comments Mobility Comments CGA to step over the threshold of the shower. OT- Balance Assessment Sitting Balance and Reactions Static Sitting Balance Ability Good Dynamic Sitting Balance Ability Fair Standing Balance and Reactions Static Standing Balance Ability Fair Dynamic Standing Balance Ability Fair M8 OT- IP Objective Assessments Start: 03/05/24 10:39 Freq: Status: Active Protocol: Document 03/05/24 10:39 [facility] (Rec: 03/05/24 10:53 [facility] [id number]) OT Gross Range of Motion Upper Extremity Range of Motion Assessment Left Impaired OT Strength Upper Extremity Strength Assessment Left Impaired M9 OT- IP Assessment and Plan Start: 03/05/24 10:39 Freq: Status: Active Protocol: Document 03/09/24 14:04 [facility] (Rec: 03/09/24 14:10 [facility] [id number]) OT Summary Assessment and Plan Potential Rehabilitation Potential Good Analytic Complexity at Evaluation Low Summary OT Impairments Pain,Range of Motion,Strength, Balance,Functional Cognition, Functional Mobility,Self- Feeding,Grooming,Dressing, Toileting,Bathing,Toilet Transfers,Shower Transfers Progress Towards Goals Progressing Toward Goals Assessment Summary Pt able to participate in showering needs and caregiver training with her daughter for ADL and sling management needs. Pt looking to go to skilled rehab. Goals Self-Feeding Goal Independent Grooming Goal Independent Dressing Goal Minimal Assistance Toileting Goal Independent Bathing Goal Minimal Assistance Toilet Transfer Goal Independent Shower Transfer Goal Standby Assistance Days to Meet Goals 5 Frequency of Treatment Other frequency 5x/week Treatment Plan OT Treatment Plan ADL Training,Functional Mobility,Patient/Family Education,Discharge Planning Discharge Recommendations OT Discharge Recommendations SNF Rehab Home Equipment Needs BSC, shower chair, ferry engineer Transportation Needs at Discharge Private Vehicle,Wheelchair/ Cabulance
== END 2024-03-09 14:27 | DRG 483 ==
LOC: OR 03-08 08:04 → AC 03-08 08:04
PROVIDERS: Hospitalist; Orthopaedic Surgery; Physician Assistant Surgical; Admitting Provider Orthopaedic Surgery; PCP Nurse Practitioner; Referring Provider Orthopaedic Surgery; Visit Provider Orthopaedic Surgery
PROC: 0RRK00Z Replacement of Left Shoulder Joint with Reverse Ball and Socket Synthetic Substitute, Open Approach (ICD-10-PCS; CPT 23472; principal; 2024-03-04 12:00)
DX: S42.292P Other displaced fracture of upper end of left humerus, subsequent encounter for fracture with malunion (principal); G93.41 Metabolic encephalopathy; J96.01 Acute respiratory failure with hypoxia; J81.0 Acute pulmonary edema; T84.498A Other mechanical complication of other internal orthopedic devices, implants and grafts, initial encounter; K76.6 Portal hypertension; M19.012 Primary osteoarthritis, left shoulder; K70.30 Alcoholic cirrhosis of liver without ascites; F17.210 Nicotine dependence, cigarettes, uncomplicated; R47.81 Slurred speech; E11.9 Type 2 diabetes mellitus without complications; E78.5 Hyperlipidemia, unspecified; I10 Essential (primary) hypertension; K21.9 Gastro-esophageal reflux disease without esophagitis; E03.9 Hypothyroidism, unspecified; F32.A Depression, unspecified; X58.XXXD Exposure to other specified factors, subsequent encounter; Z79.84 Long term (current) use of oral hypoglycemic drugs
CPT/HCPCS: 36415; 36600; 64415; 70450; 71045; 71275; 73020; 80048; 80053; 81001; 82140; 82805; 82962; 83605; 83735; 84484; 85025; 85027; 87040; 93306; 94762; 97110; 97116; 97129; 97162; 97165; 97530; 97535; C1776; J0690; J1815; J1940; J2405; J2543; J2704; J2765; J3010; Q9967